=== PATIENT | female | born 1975 | race Caucasian/White ===

== ENCOUNTER 2018-01-29 06:12 | Day surgery (SDC) | payer MEDICAID ==
[~2018-01-29] VITALS: Ht 172.7 cm; Wt 77.6 kg
[~2018-01-29 06:12] MED LIST: AMIT25TA9 PO; ARIP10TA2 PO; AZIT250T PO; BUDE10.22 IH; D-ME118S33 PO; HYDR-1231 PO; HYDR1CAP2 PO; HYDR1TAB PO; LORA10TA7 PO; NAPR-243 PO; NAPR250T34 PO; OMEP40CA36 PO; PARO30TA74 PO; PENI500T; PRD20T PO; TRM50T PO; TRZ100T PO
--- OUTSIDE RECORDS SUMMARY | 2018-01-29 06:16 | XMS REPORT ---
Author Author BELÉN TOVAR Organization [employer] Address Unknown Phone Unavailable Care Team Providers Care Community Chest Officer Name Role Phone BELÉN TOVAR CP Unavailable Allergies No Known Allergies Problems Problem Type Condition Code Onset Dates Condition Status Problem Sleep disturbance G47.9 Active Problem Gastroesophageal reflux disease, esophagitis presence not specified K21.9 Active Problem Elevated liver enzymes R74.8 Active Medications No Known Medications Results No Known Results Summary Purpose [employer] Submission
--- OUTSIDE RECORDS SUMMARY | 2018-01-29 06:16 | XMS REPORT ---
Author Author BELÉN TOVAR Organization [employer] Address Unknown Phone Unavailable Care Team Providers Care Vending Route Servicer Name Role Phone BELÉN TOVAR Unavailable Allergies No Known Allergies Problems Problem Type Condition Code Onset Dates Condition Status Problem Sleep disturbance G47.9 Active Problem Gastroesophageal reflux disease, esophagitis presence not specified K21.9 Active Problem Elevated liver enzymes R74.8 Active Assessment Elevated liver enzymes R74.8 Active Medications No Known Medications Procedures Procedure Coding System Code Date VENIPUNCT, ROUTINE* CPT-4 77720 Mar 30, 2016 LAB NOT BILLED BY [facility] CPT-4 NOBLL Mar 30, 2016 Results Name Result Date Reference Range Unit Abnormality Flag ROUTINE VENIPUNCTURE Summary Purpose [employer] Submission
--- OUTSIDE RECORDS SUMMARY | 2018-01-29 06:16 | XMS REPORT ---
Author Author ADRIENBELÉN CUTLER [facility] Address [address] [place] [address] Care Team Providers Care Bullet Slugs Inspector Name Role Phone BELÉN TOVAR Unavailable PROBLEMS Type Condition ICD9-CM Code VHQ12-SA Code Onset Dates Condition Status SNOMED Code Problem Tobacco abuse counseling Z71.6 Active 833559151 Problem Anxiety associated with depression F41.8 Active 156743540 Problem Psoriatic arthritis L40.50 Active 855386321 Problem Gastroesophageal reflux disease, esophagitis presence not specified K21.9 Active 394216705 Problem Sleep disturbance G47.9 Active 66263780 Problem Tobacco abuse Z72.0 Active 374896602 Problem Polydipsia R63.1 Active 68344759 Problem Microscopic hematuria R31.29 Active 198572978 Problem Depressed mood F32.9 Active 100606822 Problem Elevated liver enzymes R74.8 Active 051277585 Problem Cigarette smoker one half pack a day or less F17.210 Active 42868365 Problem Hypertriglyceridemia E78.1 Active 952306438 ALLERGIES Substance Reaction Event Type Date Status Sulfa Unknown Non Drug Allergy May, Active ENCOUNTERS Encounter Location Date Diagnosis [facility] [address] [facility] [id number][place] [id number] Dec, [facility] [id number][place] [id number] October, Dental examination Z01.20 [facility] [address] [facility] [id number][place] [id number] Jul, [facility] [address] [id number][place] [id number] Jun, GE (gastroenteritis) K52.9 [facility] [address] [place] [address] [id number][place] [id number] May, Microscopic hematuria R31.[address] [facility] [address] [id number][place] [id number] May, Polydipsia R63.1 ; Gastroesophageal reflux disease, esophagitis presence not specified K21.9 ; Cigarette smoker one half pack a day or less F17.210 and Microscopic hematuria R31.29 [facility] [address] [id number] [id number] 19 Feb, 2017 Acute non-recurrent maxillary sinusitis J01.00 and Sinus pressure J34.89 [facility] [id number][place] [id number] Feb, Tinea pedis of left foot B35.3 [facility] [address] [id number][place] [id number] October, Gastroesophageal reflux disease, esophagitis presence not specified K21.9 and Psoriatic arthritis L40.50 [facility] [address] [id number][place] [id number] October, [facility] [address] [id number][place] [id number] Jun, [facility] [address] [id number][place] [id number] Jun, Gastroesophageal reflux disease, esophagitis presence not specified K21.9 and Hypertriglyceridemia E78.1 [facility] [address] [id number][place] [id number] May, Psoriatic arthritis L40.50 [facility] [address] [id number][place] [id number] Apr, [facility] [address] [id number][place] [id number] Apr, Depressed mood F32.9 ; Tobacco abuse Z72.0 ; Tobacco abuse counseling Z71.6 and Psoriatic arthritis L40.[address] [facility] [address] [id number], [place] [address] Apr, [facility] [address] [id number], [place] [id number] Apr, Depressed mood F32.[address] [facility] [address] [id number], [place] [id number] Mar, Elevated liver enzymes R74.[address] [facility] [address] [id number], [place] [id number] Mar, Elevated liver enzymes R74.[address] [facility] [address] [id number], [place] [id number] Mar, Elevated liver enzymes R74.[address] [facility] [address] [id number], [place] [id number] Mar, [facility] [address] [id number], [place] [address] Mar, Sleep disturbance G47.[address] [facility] [address] [id number], [place] [id number] Mar, Sleep disturbance G47.9 and Gastroesophageal reflux disease, esophagitis presence not specified K21.[address] [facility] [address] [id number], [place] [id number] Mar, Anxiety associated with depression F41.[address] [facility] [address] [id number], [place] [id number] Nov, [facility] [place] [facility] [id number] [address] Sep, [facility] [place] [facility] [id number] [place] [address] Sep, [facility] [place] [facility] [id number] [address] Jul, [facility] [place] [facility] [id number] [place] [address] Jul, [facility] [place] [facility] [address]00565100[place] [address] Jul, [facility] [place] [facility] [id number] [place] [id number] Jul, 2014 [facility] [place] [facility] [address] [id number] [place] [address] Jul, 2014 [facility] [place] [facility] [address] [id number] [place] [address] Jul, 2014 [facility] [place] [facility] [address] [id number] [place] [address] Jul, 2014 [facility] [place] [facility] [address] [id number] [place] [address] 1184 Jul, 2014 [facility] [place] [facility] [address] [id number] [place] [address] Jul, 2014 [facility] [place] [facility] [address] [facility] [id number] [place] [address] May, [facility] [place] [facility] [address] [facility] [id number] [place] [address]- 6759 May, [facility] [place] [facility] [address] [id number] [place] [address]- 7144 May, [facility] [place] [facility] [address] [id number] [place] [address]- 7207 May, [facility] [place] [facility] [address] [facility] [id number] [place] [address]107 May, [facility] [place] [facility] [address] [id number] [place] [address]65 May, [facility] [place] [facility] [address] [id number] [place] [address] 2310 Apr, [facility] [place] [facility] [address] [id number] [place] [address]- 5871 Apr, [facility] [place] [facility] [address] [facility] [id number] [place] [address]- 1612 Mar, [facility] [place] [facility] [address] [id number] [place] [address] Mar, [facility] [place] [facility] [address] [id number] [place] [address]- 9204 Mar, [facility] [place] [facility] [address] [id number] [place] [address]- 5191 Mar, [facility] [place] [facility] [address] [id number] [place] [address]- 30[address] Mar, [facility] [place] [facility] [address] [id number] [place] [address]- 3288 Mar, [facility] [place] [facility] [address] [id number] [place] [address]- 0222 Mar, [facility] [place] [facility] [address] [id number] [place] [address] Feb, [facility] [place] [facility] [address] [id number] [place] [address]- 7207 Feb, [facility] [place] [facility] [address] [id number] [place] [address]- 9134 Dec, [facility] [place] [facility] [address] [id number] [place] [address]- 4884 Dec, [facility] [place] [facility] [address] [id number] [place] [address]- 8161 Dec, [facility] [place] [facility] [address] [id number] [place] [address]- 0328 Dec, [facility] [place] [facility] [address] [id number] [place] [address]- 0529 Dec, [facility] [place] [facility] [address] [id number] [place] [address]- 9728 Dec, [facility] [place] [facility] [address] [id number] [place] [address]- 2313 Nov, [facility] [place] [facility] [address] [id number] [place] [address]- [address]304 Nov, [facility] [place] [facility] [address] [id number] [place] [address]- 3784 Nov, [facility] [place] [facility] [address] [id number] [place] [address]- 6977 Nov, [facility] [place] [facility] [address] [id number] [place] [address]- 0045 Nov, [facility] [place] [facility] [address] [id number] [place] [address]- 3130 Nov, [facility] [place] [facility] [address] [id number] [place] [address]- 9025 Nov, [facility] [place] [facility] [address] [id number] [place] [address]- 3444 Nov, [facility] [place] [facility] [address] [id number] [place] [address]- 3671 Nov, [facility] [place] [facility] [address] [id number] [place] [address]- 5938 Nov, [facility] [place] [facility] [address] [id number] [place] [address]- 9105 October, [facility] [place] [facility] [address] [id number] [place] [address]- 2807 October, [facility] [place] [facility] [address] [id number] [place] [address]- 0037 October, [facility] [place] [facility] [address] [id number] [place] [address]- 4155 October, [facility] [place] [facility] [address] [id number] [place] [address]- 2770 October, [facility] [place] [facility] [address] [id number] [place] [address]- 9718 October, [facility] [place] [facility] [address] [id number] [place] [address]- 9449 October, [facility] [place] [facility] [address] [id number] [place] [address]- 7480 October, [facility] [place] [facility] [address] [id number] [place] [address]- 9654 October, [facility] [address] [id number] [place] [address]- 8074 October, [facility] [address] [id number] [place] [address]- 2223 October, [facility] [address] [id number] [place] [address]- 2040 October, [facility] [address] [id number] [place] [address]- 1746 October, [facility] [address] [id number] [place] [address]- 1534 October, [facility] [address] [id number] [place] [address]- 4383 October, [facility] [address] [id number] [place] [address]- 8804 October, [facility] [address] [id number] [place] [address]- 0230 October, [facility] [address] [id number] [place] [address]- 4066 Sep, [facility] [address] [id number] [place] [address]- 9020 Sep, [facility] [address] [id number] [place] [address]- 5190 Jun, [facility] [address] [id number] [place] [address]- 6195 Jun, [facility] [place] [facility] [address] [id number] [place] [address]- 2279 Jun, [facility] [address] [id number] [place] [address]- 0124 Jun, [facility] [address] [id number] [place] [address]- 6150 Jun, [facility] [place] [facility] [address] [id number] [place] [address]- 8913 17 Jun, 2013 [facility] [place] [facility] [address] [id number] [place] [address]- 7957 16 Jun, 2013 [facility] [place] [facility] [address] [id number] [place] [address]- 8437 15 Jun, 2013 [facility] [place] [facility] [address] [id number] [place] [address]- 5380 15 Jun, 2013 [facility] [place] [facility] [address] [id number] [place] [address]- 4699 15 Jun, 2013 [facility] [place] [facility] [address] [id number] [place] [address]- 0175 15 Jun, 2013 [facility] [place] [facility] [address] [id number] [place] [address]- 5082 May, [facility] [place] [facility] [address] [id number] [place] [address]- 2702 May, [facility] [place] [facility] [address] [id number] [place] [address]- 2369 Apr, [facility] [place] [facility] [address] [id number] [place] [address]- 0857 Apr, [facility] [place] [facility] [address] [id number] [place] [address]- 0657 Apr, [facility] [place] [facility] [address] [id number] [address]- 3299 Apr, [facility] [place] [facility] [address] [id number] [place] [address]- 6998 Apr, [facility] [place] [facility] [address] [id number] [place] [address]- 1571 Apr, [facility] [place] [facility] [address] [id number] [place] [address]- 4440 Apr, [facility] [place] [facility] [address] [id number] [place] [address]- 6080 Mar, [facility] [address] [id number] [place] [address]- 5161 Mar, [facility] [place] [facility] [address] [id number] [place] [address]- 5139 Mar, [facility] [address] [id number] [place] [address]- 0966 Mar, [facility] [place] [facility] [address] [id number] [place] [address]- 1155 Mar, [facility] [address] [id number] [place] [address]- 7227 Mar, [facility] [place] [facility] [address] [id number] [place] [address]- 1049 Mar, [facility] [address] [id number] [place] [address]- 5751 Mar, [facility] [place] [facility] [address] [id number] [place] [address]- 7989 Feb, [facility] [place] [facility] [address] [id number] [place] [address]- 8608 Dec, [facility] [place] [facility] [address] [id number] [place] [address]- 9825 Nov, [facility] [place] [facility] [address] [id number] [place] [address]- 5812 Nov, [facility] [place] [facility] [address] [id number] [place] [address]- 1259 October, [facility] [place] [facility] [address] [id number] [place] [address]- 0231 October, [facility] [place] [facility] [address] [id number] [place] [address]- 8782 October, [facility] [place] [facility] [address] [id number] [place] [address]- 5552 October, [facility] [place] [facility] [address] [id number] [place] [address]- 2546 October, [facility] [address] [id number] [place] [address]- 4846 October, [facility] [address] [id number] [place] [address]- 2546 October, [facility] [address] [id number] [place] [address]- 2546 Aug, [facility] [place] [facility] [address] [id number] [place] [address]- 2546 Aug, [facility] [place] [facility] [address] [id number] [place] [address]- 9386 Jul, [facility] [address] [id number] [place] [address]- 2546 Jun, [facility] [address] [id number] [place] [address]- 9646 May, [facility] [address] [id number] [place] [address]- 7513 May, [facility] [address] [facility] [id number] [place] [address]- 9576 Apr, [facility] [address] [facility] [id number] [place] [address]- 8536 Apr, [facility] [address] [facility] [id number] [address]- 2466 Mar, [facility] [address] [facility] [id number] [place] [address]- 2546 Mar, [facility] [address] [id number] [id number] Mar, [facility] [address] [facility] [id number] [place] [address]- 2546 Mar, [facility] [place] [facility] [address] [facility] [id number], [place] [address]- 1011 Feb, [facility] [address] [id number] [place] [id number] Feb, [facility] [address] [id number] [place] [address]- 0581 Jan, [facility] [address] [id number] [place] [address]- 9335 Dec, [facility] [address] [id number] [place] [address]- 3484 October, [facility] [address] [id number] [place] [address]- 0692 Sep, [facility] [address] [id number] [place] [address]- 5142 Sep, [facility] [address] [id number] [place] [address]- 5557 Sep, [facility] [address] [id number] [place] [address]- 3374 Sep, [facility] [address] [id number] [place] [address]- 7691 Sep, [facility] [address] [id number] [place] [address]- 5226 Sep, [facility] [address] [id number] [place] [address]- 5609 Sep, [facility] [address] [id number] [place] [address]- 9162 Aug, [facility] [place] [facility] [address] [id number] [place] [address]- 2741 Aug, [facility] [place] [facility] [address] [id number] [place] [address]- 7048 Aug, [facility] [address] [id number] [place] [address]- 5484 May, [facility] [address] [id number], [place] [address]- 1646 Apr, [facility] [address] [facility] [id number] [place] [address]- 9024 Mar, [facility] [address] [facility] [id number], [place] [address]- 2676 Mar, [facility] [address] [facility] [id number], [place] [address]- 8335 Jun, [facility] [address] [facility] [id number], [place] [address]- 9137 Apr, IMMUNIZATIONS No Known Immunizations SOCIAL HISTORY Never Assessed REASON FOR VISIT gerd bferrisma PLAN OF CARE Activity Details Follow Up 6 Weeks Reason:WW exam VITAL SIGNS Height 66 in 2017-05-16 Weight 174.8 lbs 2017-05-16 Temperature 97.2 degrees Fahrenheit 2017-05-16 Heart Rate 86 bpm 2017-05-16 Respiratory Rate 16 2017-05-16 BMI 28.21 kg/m2 2017-05-16 Blood pressure systolic 118 mmHg 2017-05-16 Blood pressure diastolic 72 mmHg 2017-05-16 MEDICATIONS Medication Instructions Dosage Frequency Start Date End Date Duration Status Meloxicam 7.5 MG Orally twice a day 1 as needed for pain, take with food 12h October, Active Omeprazole 40 mg Orally Once a day 1 capsule 24h Jul, 90 days Active Triamcinolone Acetonide 0.1 % Externally Twice a day-2 weeks on and 2 weeks off 1 application to affected area Active Sudafed 60 mg Orally every 6 hrs 1 tablet as needed 6h Feb, 14 days Not-Taking Nicoderm CQ 21 MG/24HR Transdermal Once a day 1 patch to skin 24h May, Jun, 30 day(s) Active RESULTS No Results PROCEDURES Procedure Date Ordered Result Body Site URINALYSIS, AUTO, W/O SCOPE May 16, 2017 LAB NOT BILLED BY [facility] May 16, 2017 INSTRUCTIONS MEDICATIONS ADMINISTERED No Known Medications MEDICAL (GENERAL) HISTORY Type Description Date Medical History Bipolar Medical History Anxiety Medical History Depression Medical History alcoholism Medical History psoriatic arthritis Medical History psoriasis Medical History trichomonas Medical History hpv Medical History herpes Medical History elevated liver enzymes Medical History hyperlipidemia Medical History EGD ordered-pt no showed Surgical History Tubal 2000 Surgical History Lump left breast removed-noncancerous 2004 Surgical History Sinus Surgery 2008,2013 Surgical History Right foot 2013 Surgical History gallbladder 1999 Hospitalization History above listed
--- OUTSIDE RECORDS SUMMARY | 2018-01-29 06:16 | XMS REPORT ---
Author Author BRIT Castro [facility] Address [address] [place] [address] Care Team Providers Care Churn Operator Name Role Phone BRIT Castro Unavailable PROBLEMS Type Condition ICD9-CM Code EDM74-AU Code Onset Dates Condition Status SNOMED Code Problem Psoriatic arthritis L40.50 Active 400249986 Problem Elevated liver enzymes R74.8 Active 957438681 Problem Anxiety associated with depression F41.8 Active 457269313 Problem Gastroesophageal reflux disease, esophagitis presence not specified K21.9 Active 744739491 Problem Sleep disturbance G47.9 Active 79353945 Problem Tobacco abuse Z72.0 Active 035859676 Problem Tobacco abuse counseling Z71.6 Active 916169030 Problem Plantar wart of right foot B07.0 Active [id number] Problem Polydipsia R63.1 Active 51441399 Problem Hypertriglyceridemia E78.1 Active 619243372 Problem Depressed mood F32.9 Active 247571629 Problem Microscopic hematuria R31.29 Active 115522270 Problem Cigarette smoker one half pack a day or less F17.210 Active 43999331 ALLERGIES Substance Reaction Event Type Date Status Sulfa Unknown Non Drug Allergy October, Active ENCOUNTERS Encounter Location Date Diagnosis [facility] [address] [facility] [id number] [id number] Jan, Plantar wart of right foot B07.0 [facility] [address] [facility] [id number][place] [address] Dec, Plantar wart of right foot B07.0 [facility] [address] [facility] [id number][place] [id number] October, Dental examination Z01.20 [facility] [address] [facility] [id number][place] [address] Jul, [address] [id number][place] [address] Jun, GE (gastroenteritis) K52.9 [facility] [id number][place] [address] May, Microscopic hematuria R31.29 [facility] [id number][place] [address] May, Polydipsia R63.1 ; Gastroesophageal reflux disease, esophagitis presence not specified K21.9 ; Cigarette smoker one half pack a day or less F17.210 and Microscopic hematuria R31.29 [address] [address] Feb, Acute non-recurrent maxillary sinusitis J01.00 and Sinus pressure J34.89 [address] [address] Feb, Tinea pedis of left foot B35.3 [facility] [address] [place] [address] AVE [id number][place] [id number] October, Gastroesophageal reflux disease, esophagitis presence not specified K21.9 and Psoriatic arthritis L40.50 [facility] [address] [place] [address] AVE [id number], [place] [id number] October, [facility] [address] [id number], [place] [address] Jun, [facility] [address] [place] [address] AVE [id number], [place] [address] Jun, Gastroesophageal reflux disease, esophagitis presence not specified K21.9 and Hypertriglyceridemia E78.1 [facility] [address] [id number], [place] [address] May, Psoriatic arthritis L40.50 [facility] [address] [id number][place] [id number] Apr, [facility] [address] [id number], [place] [address] Apr, Depressed mood F32.9 ; Tobacco abuse Z72.0 ; Tobacco abuse counseling Z71.6 and Psoriatic arthritis L40.[address] [facility] [address] [id number][place] [address] Apr, [facility] [address] [id number], [place] [address] Apr, Depressed mood F32.[address] [facility] [address] [id number], [place] [address] Mar, Elevated liver enzymes R74.[address] [facility] [address] [id number], [place] [address] Mar, Elevated liver enzymes R74.[address] [facility] [address] [id number], [place] [address] Mar, Elevated liver enzymes R74.8 [facility] [address] [id number], [place] [address] Mar, [facility] [address] [id number], [place] [address] Mar, Sleep disturbance G47.9 [facility] [address] [id number], [place] [address] Mar, Sleep disturbance G47.9 and Gastroesophageal reflux disease, esophagitis presence not specified K21.[address] [facility] [address] [id number], [place] [address] Mar, Anxiety associated with depression F41.[address] [facility] [address] [id number], [place] [address] Nov, [facility] [place] [facility] [address] [id number], [place] [address] Sep, [facility] [place] [facility] [address]00565100[place], [place] [address] Sep, [facility] [place] [facility] [address] [id number], [place] [address] Jul, [facility] [address]00565100[place], [place] [address] 13 Jul, 2014 [facility] [place] [facility] [address] [id number] [place] [address] Jul, 2014 [facility] [place] [facility] [address] [facility] [id number] [place] [address] 12 Jul, 2014 [facility] [place] [facility] [address] [facility] [id number] [place] [address] 9966 Jul, 2014 [facility] [place] [facility] [address] [facility] [id number] [place] [address] 8036 Jul, 2014 [facility] [place] [facility] [address] [facility] [id number] [place] [address] 2398 Jul, 2014 [facility] [place] [facility] [address] [facility] [id number] [place] [address]- 5356 05 Jul, 2014 [facility] [place] [facility] [address] [id number] [address] 05 Jul, 2014 [facility] [place] [facility] [address] [facility] [id number] [place] [address]- 9827 May, [facility] [place] [facility] [address] [facility] [id number] [place] [address] 3218 May, [facility] [place] [facility] [address] [facility] [id number] [place] [address] 7962 May, [facility] [place] [facility] [address] [facility] [id number] [place] [address] 2546 May, [facility] [place] [facility] [address] [facility] [id number] [place] [address]- 2544 May, [facility] [place] [facility] [address] [facility] [id number] [place] [address] May, [facility] [place] [facility] [address] [facility] [id number] [place] [address]- 4716 Apr, [facility] [place] [facility] [address] [facility] [id number] [place] [address]- 7611 Apr, [facility] [place] [facility] [address] [id number] [place] [address]- 1149 Mar, [facility] [place] [facility] [address] [id number] [place] [address]- 6379 Mar, [facility] [place] [facility] [address] [id number] [place] [address]- 2596 Mar, [facility] [place] [facility] [address] [id number] [place] [address]- 4526 Mar, [facility] [place] [facility] [address] [id number] [place] [address]- 9312 Mar, [facility] [place] [facility] [address] [id number] [place] [address]- 2636 Mar, [facility] [place] [facility] [address] [id number] [place] [address]- 1262 Mar, [facility] [place] [facility] [address] [id number] [place] [address]- 9353 Feb, [facility] [place] [facility] [address] [id number] [place] [address]- 6370 Feb, [facility] [place] [facility] [address] [id number] [place] [address]- 6606 Dec, [facility] [place] [facility] [address] [id number] [place] [address]- 1785 Dec, [facility] [place] [facility] [address] [id number], [place] [address] Dec, [facility] [place] [facility] [address] [id number] [place] [address]- 7785 Dec, [facility] [place] [facility] [address] [id number] [place] [address]- 1306 Dec, [facility] [place] [facility] [address] [id number] [place] [address]- 7690 Dec, [facility] [place] [facility] [address] [id number] [place] [address]- 8055 Nov, [facility] [place] [facility] [address] [id number] [place] [address]- 3447 Nov, [facility] [place] [facility] [address] [id number] [place] [address]- 3874 Nov, [facility] [place] [facility] [address] [id number] [place] [address]- 4302 Nov, [facility] [place] [facility] [address] [id number] [place] [address]- 1337 Nov, [facility] [place] [facility] [address] [id number] [place] [address]- 5568 Nov, [facility] [place] [facility] [address] [id number] [place] [address]- 4023 Nov, [facility] [place] [facility] [address] [id number] [place] [address]- 4908 Nov, [facility] [place] [facility] [address] [id number] [place] [address]- 4866 Nov, [facility] [place] [facility] [address] [id number] [place] [address]- 2792 Nov, [facility] [place] [facility] [address] [id number] [place] [address]- 3410 October, [facility] [place] [facility] [address] [id number] [place] [address]- 8482 October, [facility] [place] [facility] [address] [id number] [place] [address]- 2864 October, [facility] [place] [facility] [address] [id number] [place] [address]- 5644 October, [facility] [place] [facility] [address] [id number] [place] [address]- 2330 October, [facility] [place] [facility] [address] [id number] [place] [address]- 4083 October, [facility] [place] [facility] [address] [id number] [place] [address]- 5967 October, [facility] [address] [id number] [place] [address]- 6109 October, [facility] [place] [facility] [address] [id number] [place] [address] October, [facility] [place] [facility] [address] [id number] [place] [address]- 3712 October, [facility] [place] [facility] [address] [id number] [place] [address]- 5649 October, [facility] [place] [facility] [address] [id number] [place] [address]- 7422 October, [facility] [place] [facility] [address] [id number] [place] [address]- 7023 October, [facility] [place] [facility] [address] [id number] [place] [address]- 7471 October, [facility] [place] [facility] [address] [id number] [place] [address]- 7511 October, [facility] [place] [facility] [address] [id number] [place] [address]- 3024 October, [facility] [place] [facility] [address] [id number] [place] [address]- 8647 October, [facility] [place] [facility] [address] [id number] [place] [address]- 8663 Sep, [facility] [place] [facility] [address] [id number] [place] [address]- 6866 Sep, [facility] [place] [facility] [address] [id number] [place] [address]- 6599 Jun, [facility] [place] [facility] [address] [id number] [place] [address]- 6446 Jun, [facility] [place] [facility] [address] [id number] [place] [address]- 4650 Jun, [facility] [place] [facility] [address] [id number] [place] [address]- 6177 Jun, [facility] [place] [facility] [address] [id number] [place] [address]- 1264 20 Jun, 2013 [facility] [place] [facility] [address] [id number] [place] [address]- 6365 17 Jun, 2013 [facility] [place] [facility] [address] [id number] [place] [address]- 2602 16 Jun, 2013 [facility] [place] [facility] [address] [id number] [place] [address]- 0226 15 Jun, 2013 [facility] [place] [facility] [address] [id number] [place] [address]- 4428 15 Jun, 2013 [facility] [place] [facility] [address] [id number] [place] [address]- 2988 15 Jun, 2013 [facility] [place] [facility] [address] [id number] [place] [address]- 5981 15 Jun, 2013 [facility] [place] [facility] [address] [id number] [place] [address]- 5923 May, [facility] [place] [facility] [address] [id number] [place] [address]- 0339 May, [facility] [place] [facility] [address] [id number], [place] [address]- 6313 Apr, [facility] [place] [facility] [address] [id number], [place] [address]- 8196 19 Apr, 2013 [facility] [place] [facility] [address] [id number] [place] [address]- 5843 15 Apr, 2013 [facility] [place] [facility] [address] [id number], [place] [address]- 9238 11 Apr, 2013 [facility] [place] [facility] [address] [id number] [place] [address]- 8185 11 Apr, 2013 [facility] [place] [facility] [address] [id number] [place] [address] 2545 Apr, [facility] [address] [id number] [place] [address]- 5606 Apr, [facility] [place] [facility] [address] [id number] [place] [address]- 5049 Mar, [facility] [place] [facility] [address] [id number] [place] [address]- 4932 Mar, [facility] [place] [facility] [address] [id number] [place] [address]- 2340 Mar, [facility] [place] [facility] [address] [id number] [place] [address]- 5047 Mar, [facility] [place] [facility] [address] [id number] [place] [address]- 0865 Mar, [facility] [place] [facility] [address] [id number] [place] [address]- 9318 Mar, [facility] [place] [facility] [address] [id number] [place] [address]- 6511 Mar, [facility] [place] [facility] [address] [id number] [place] [address]- 0337 Mar, [facility] [place] [facility] [address] [id number] [place] [address]- 9817 Feb, [facility] [place] [facility] [address] [id number] [place] [address]- 6461 Dec, [facility] [place] [facility] [address] [id number] [place] [address] 2549 Nov, [facility] [place] [facility] [address] [id number] [place] [address]- 3771 Nov, [facility] [place] [facility] [address] [id number] [place] [address]- 8642 October, [facility] [place] [facility] [address] [id number] [place] [address]- 0290 October, [facility] [place] [facility] [address] [id number] [place] [address]- 5226 October, [facility] [address] [id number] [place] [address]- 3226 October, [facility] [address] [id number] [place] [address]- 2546 October, [facility] [address] [id number] [place] [address]- 5176 October, [facility] [address] [id number] [place] [address]- 2546 October, [facility] [address] [id number] [place] [address]- 3116 Aug, [facility] [address] [facility] [id number] [place] [address]- 2546 Aug, [facility] [address] [id number] [place] [address]- 8486 Jul, [facility] [address] [id number] [place] [address]- 4286 Jun, [facility] [address] [facility] [id number] [place] [address]- 2806 May, [facility] [address] [facility] [id number] [place] [address]- 2186 May, [facility] [address] [id number] [place] [address]- 2546 Apr, [facility] [address] [facility] [id number] [place] [address]- 2546 Apr, [facility] [address] [facility] [id number] [place] [address]- 2546 Mar, [facility] [address] [facility] [id number] [place] [address]- 2546 Mar, [facility] [address] [id number] [address] Mar, [facility] [address] [id number] [place] [address]- 5326 Mar, [facility] [address] [id number] [place] [address]- 3396 Feb, [facility] [address] [id number][place] [address] Feb, [facility] [place] [facility] [address] [id number] [place] [address] 2546 Jan, [facility] [place] [facility] [address] [id number] [place] [address]- 8081 Dec, [facility] [place] [facility] [address] [id number] [place] [address]- 8246 October, [facility] [place] [facility] [address] [id number] [place] [address]- 5481 Sep, [facility] [place] [facility] [address] [id number] [place] [address]- 2735 Sep, [facility] [place] [facility] [address] [id number] [place] [address]- 9761 Sep, [facility] [place] [facility] [address] [id number] [place] [address]34 Sep, [facility] [place] [facility] [address] [id number] [place] [address]- 6201 Sep, [facility] [place] [facility] [address] [id number], [place] [address]- 5647 Sep, [facility] [place] [facility] [address] [id number] [place] [address]- 7740 Sep, [facility] [place] [facility] [address] [id number] [place] [address]- 3906 Aug, [facility] [place] [facility] [address] [id number] [place] [address]- 4116 Aug, [facility] [place] [facility] [address] [id number], [place] [address]- 7987 Aug, [facility] [address] [id number] [address]99 May, [facility] [address] [id number], [place] [address]- 1516 Apr, [facility] [address] [id number], [place] [address]- 6293 Mar, [facility] [address] [id number], [place] [address]- 6081 Mar, [facility] [address] [id number] 3216 Jun, [facility] [address] [id number] 5828 Apr, IMMUNIZATIONS No Known Immunizations SOCIAL HISTORY Never Assessed REASON FOR VISIT broke tooth PLAN OF CARE Activity Details Follow Up 1 Week Reason:1 hour restorative VITAL SIGNS Height 66 in 2017-10-24 Blood pressure systolic 114 mmHg 2017-10-24 Blood pressure diastolic 72 mmHg 2017-10-24 MEDICATIONS Medication Instructions Dosage Frequency Start Date End Date Duration Status Omeprazole 40 mg Orally Once a day 1 capsule 24h Jul, 90 days Active Nicoderm CQ 14 MG/24HR Transdermal Once a day 1 patch to skin 24h Not-Taking Meloxicam 7.5 MG Orally twice a day 1 as needed for pain, take with food 12h 30 Oct, 2016 Active Triamcinolone Acetonide 0.1 % Externally Twice a day-2 weeks on and 2 weeks off 1 application to affected area Not-Taking Sudafed 60 mg Orally every 6 hrs 1 tablet as needed 6h 19 Feb, 2017 14 days Not-Taking RESULTS No Results PROCEDURES Procedure Date Ordered Result Body Site LTD ORAL EVALUATION - PROBLEM FOCUS October 24, 2017 INTRAORL-PERIAPICAL 1 FILM 09812 October 24, 2017 BITEWING - SINGLE FILM October 24, 2017 INSTRUCTIONS MEDICATIONS ADMINISTERED No Known Medications MEDICAL (GENERAL) HISTORY Type Description Date Medical History Bipolar Medical History Anxiety Medical History Depression Medical History alcoholism Medical History psoriatic arthritis Medical History psoriasis Medical History trichomonas Medical History hpv Medical History herpes Medical History elevated liver enzymes Medical History hyperlipidemia Medical History EGD ordered-pt no showed Surgical History Tubal 1999 Surgical History Lump left breast removed-noncancerous 2004 Surgical History Sinus Surgery 2008,2013 Surgical History Right foot 2013 Surgical History gallbladder 1999 Hospitalization History above listed
--- OUTSIDE RECORDS SUMMARY | 2018-01-29 06:16 | XMS REPORT ---
Author Author DJEON RUBIO [facility] eClinical[employer] Address Unknown Phone Unavailable Care Team Providers Care Stamp Presser Name Role Phone DEJON RUBIO CP Unavailable Allergies No Known Allergies Problems Problem Type Condition Code Onset Dates Condition Status Problem Elevated liver enzymes R74.8 Active Problem Sleep disturbance G47.9 Active Problem Depressed mood F32.9 Active Problem Gastroesophageal reflux disease, esophagitis presence not specified K21.9 Active Assessment Depressed mood F32.9 Active Medications No Known Medications Procedures Procedure Coding System Code Date Psychotherapy, patient &/family, 45 minutes, established patient CPT-4 73454 Apr 07, 2016 Results No Known Results Summary Purpose eClinicalWorks Submission
--- OUTSIDE RECORDS SUMMARY | 2018-01-29 06:16 | XMS REPORT ---
Author Author BELÉN TOVAR Organization [facility] Address [address] [place] [address] Care Team Providers Care Chief Mechanical Officer Name Role Phone BELÉN TOVAR Unavailable PROBLEMS Type Condition ICD9-CM Code [id number] Code Onset Dates Condition Status SNOMED Code Problem Gastroesophageal reflux disease, esophagitis presence not specified K21.9 Active 714484980 Problem Tobacco abuse Z72.0 Active 710788065 Problem Sleep disturbance G47.9 Active 59395188 Problem Hypertriglyceridemia E78.1 Active 403985917 Problem Depressed mood F32.9 Active 179721076 Problem Psoriatic arthritis L40.50 Active 031281267 Problem Tobacco abuse counseling Z71.6 Active 153701182 Problem Elevated liver enzymes R74.8 Active 178990785 Problem Anxiety associated with depression F41.8 Active 811049831 ALLERGIES Substance Reaction Event Type Date Status Sulfa Unknown Non Drug Allergy Jun, Active SOCIAL HISTORY No smoking Hx information available PLAN OF CARE Activity Details Follow Up 3 Months Reason:GERD VITAL SIGNS Height 66 in 2016-06-08 Weight 190.9 lbs 2016-06-08 Temperature 97.4 degrees Fahrenheit 2016-06-08 Heart Rate 82 bpm 2016-06-08 Respiratory Rate 18 2016-06-08 BMI 30.81 kg/m2 2016-06-08 Blood pressure systolic 106 mmHg 2016-06-08 Blood pressure diastolic 62 mmHg 2016-06-08 MEDICATIONS Medication Instructions Dosage Frequency Start Date End Date Duration Status Omeprazole 40 mg Orally Once a day 1 capsule 24h Jul, 90 days Active Triamcinolone Acetonide 0.1 % Externally Twice a day apply a thin layer to the affected area(s) by Topical route 2 times per day on for 2 weeks, off x 2 weeks 12h Jul, 14 days Active RESULTS No Results PROCEDURES Procedure Date Ordered Related Diagnosis Body Site Office Visit, Est Pt., Level 3 Jun 08, 2016 IMMUNIZATIONS No Known Immunizations
--- OUTSIDE RECORDS SUMMARY | 2018-01-29 06:16 | XMS REPORT ---
Author Author DEJON RUBIO Organization [facility] Address Unknown Phone Unavailable Care Team Providers Care Field Crop Farmer Name Role Phone DEJON RUBIO Unavailable Unavailable PROBLEMS Type Condition ICD9-CM Code [id number]-NW Code Onset Dates Condition Status SNOMED Code Problem Gastroesophageal reflux disease, esophagitis presence not specified K21.9 Active 256637735 Problem Tobacco abuse Z72.0 Active 541471104 Problem Sleep disturbance G47.9 Active 31287630 Problem Hypertriglyceridemia E78.1 Active 850699578 Problem Depressed mood F32.9 Active 685868688 Problem Psoriatic arthritis L40.50 Active 040687957 Problem Tobacco abuse counseling Z71.6 Active 415695304 Problem Elevated liver enzymes R74.8 Active 159414766 Problem Anxiety associated with depression F41.8 Active 623212284 ALLERGIES No Known Allergies SOCIAL HISTORY No smoking Hx information available PLAN OF CARE VITAL SIGNS MEDICATIONS No Known Medications RESULTS No Results PROCEDURES No Known procedures IMMUNIZATIONS No Known Immunizations
--- OUTSIDE RECORDS SUMMARY | 2018-01-29 06:17 | XMS REPORT ---
Author Author [facility]Y [facility] Address [address] [place] [address] Care Team Providers Care Straw Baler Name Role Phone BELÉN TOVAR Unavailable PROBLEMS Type Condition ICD9-CM Code [id number] Code Onset Dates Condition Status SNOMED Code Problem Gastroesophageal reflux disease, esophagitis presence not specified K21.9 Active 139394323 Problem Tobacco abuse Z72.0 Active 044041715 Problem Sleep disturbance G47.9 Active 14370230 Problem Hypertriglyceridemia E78.1 Active 131703032 Problem Depressed mood F32.9 Active 314508948 Problem Psoriatic arthritis L40.50 Active 579312550 Problem Tobacco abuse counseling Z71.6 Active 823527732 Problem Elevated liver enzymes R74.8 Active 838963573 Problem Anxiety associated with depression F41.8 Active 284354845 ALLERGIES Substance Reaction Event Type Date Status Sulfa Unknown Non Drug Allergy October, Active SOCIAL HISTORY Never Assessed PLAN OF CARE Activity Details Follow Up 6 Months Reason:gerd Future/Pending Procedure EGD VITAL SIGNS Height 66 in 2016-10-31 Weight 178.4 lbs 2016-10-31 Temperature 97.3 degrees Fahrenheit 2016-10-31 Heart Rate 80 bpm 2016-10-31 Respiratory Rate 18 2016-10-31 BMI 28.79 kg/m2 2016-10-31 Blood pressure systolic 130 mmHg 2016-10-31 Blood pressure diastolic 64 mmHg 2016-10-31 MEDICATIONS Medication Instructions Dosage Frequency Start Date End Date Duration Status Triamcinolone Acetonide 0.1 % Externally Twice a day apply a thin layer to the affected area(s) by Topical route 2 times per day on for 2 weeks, off x 2 weeks 12h 12 Jul, 2014 14 days Active Omeprazole 40 mg Orally Once a day 1 capsule 24h Jul, 90 days Active Meloxicam 7.5 MG Orally twice a day 1 as needed for pain, take with food 12h October, Active RESULTS No Results PROCEDURES No Known procedures IMMUNIZATIONS No Known Immunizations MEDICAL (GENERAL) HISTORY Type Description Date Medical History Bipolar Medical History Anxiety Medical History Depression Medical History alcoholism Medical History psoriatic arthritis Medical History psoriasis Medical History trichomonas Medical History hpv Medical History herpes Medical History elevated liver enzymes Medical History hyperlipidemia Surgical History Tubal 2000 Surgical History Lump left breast removed 2004 Surgical History Sinus Surgery 2008,2013 Surgical History Right foot 2013 Surgical History gallbladder 2000
--- OUTSIDE RECORDS SUMMARY | 2018-01-29 06:17 | XMS REPORT ---
Author Author MAUDE UGEVARA [facility] Address [address] [place] [address] Care Team Providers Care Field Account Manager Name Role Phone MAUDE GUEVARA Unavailable PROBLEMS Type Condition ICD9-CM Code XUJ77-LV Code Onset Dates Condition Status SNOMED Code Problem Tobacco abuse counseling Z71.6 Active 404705202 Problem Anxiety associated with depression F41.8 Active 776054078 Problem Psoriatic arthritis L40.50 Active 356502369 Problem Gastroesophageal reflux disease, esophagitis presence not specified K21.9 Active 934748916 Problem Sleep disturbance G47.9 Active 05627386 Problem Tobacco abuse Z72.0 Active 672080379 Problem Polydipsia R63.1 Active 00889246 Problem Microscopic hematuria R31.29 Active 141792325 Problem Depressed mood F32.9 Active 997972418 Problem Elevated liver enzymes R74.8 Active 493034338 Problem Cigarette smoker one half pack a day or less F17.210 Active 98750462 Problem Hypertriglyceridemia E78.1 Active 774807320 ALLERGIES Substance Reaction Event Type Date Status Sulfa Unknown Non Drug Allergy Feb, Active ENCOUNTERS Encounter Location Date Diagnosis [address] [id number] [id number] Jul, [address] [id number][place] [address] Jun, GE (gastroenteritis) K52.[address] [id number][place] [address] May, Microscopic hematuria R31.[address] [id number][place] [id number] May, Polydipsia R63.1 ; Gastroesophageal reflux disease, esophagitis presence not specified K21.9 ; Cigarette smoker one half pack a day or less F17.210 and Microscopic hematuria R31.29 [facility] [address] [facility] [id number][place] [address] Feb, Acute non-recurrent maxillary sinusitis J01.00 and Sinus pressure J34.89 [facility] [address] [facility] [id number][place] [id number] 08 Feb, 2017 Tinea pedis of left foot B35.[address] [facility] [address] [id number][place] [address] October, Gastroesophageal reflux disease, esophagitis presence not specified K21.9 and Psoriatic arthritis L40.50 [facility] [address] [id number][place] [address] October, [facility] [address] [id number][place] [address] Jun, [facility] [address] [id number][place] [address] Jun, Gastroesophageal reflux disease, esophagitis presence not specified K21.9 and Hypertriglyceridemia E78.[address] [facility] [address] [id number][place] [address] May, Psoriatic arthritis L40.[address] [facility] [address] [id number][place] [address] Apr, [facility] [address] [id number][place] [address] Apr, Depressed mood F32.9 ; Tobacco abuse Z72.0 ; Tobacco abuse counseling Z71.6 and Psoriatic arthritis L40.[address] [facility] [address] [id number][place] [address] Apr, [facility] [address] [id number][place] [address] Apr, Depressed mood F32.[address] [facility] [address] [id number][place] [address] Mar, Elevated liver enzymes R74.[address] [facility] [address] [id number][place] [address] Mar, Elevated liver enzymes R74.8 [facility] [address] [id number][place] [address] Mar, Elevated liver enzymes R74.8 [facility] [address] [id number][place] [address] Mar, [facility] [address] [id number], [place] [address] Mar, Sleep disturbance G47.9 [facility] [address] [id number][place] [address] Mar, Sleep disturbance G47.9 and Gastroesophageal reflux disease, esophagitis presence not specified K21.9 [facility] [address] [id number][place] [address] Mar, Anxiety associated with depression F41.8 [facility] [address] [id number][place] [address] Nov, [facility] [place] [facility] [id number] [address] Sep, [facility] [place] [facility] [id number] [place] [address] Sep, [facility] [place] [facility] [id number] [address] Jul, [facility] [place] [facility] [id number] [place] [address] Jul, [facility] [place] [facility] [address] [address] Jul, [facility] [place] [facility] [id number] [place] [address] Jul, [facility] [place] [facility] [address] [address] Jul, [facility] [place] [facility] [id number] [place] [address] Jul, 2014 [facility] [place] [facility] [address] [id number] [place] [address] Jul, 2014 [facility] [place] [facility] [address] [id number] [place] [address] Jul, 2014 [facility] [place] [facility] [address] [id number] [place] [address] Jul, 2014 [facility] [place] [facility] [address] [id number] [place] [address] 8926 May, [facility] [place] [facility] [address] [id number] [place] [address] 7567 May, [facility] [place] [facility] [address] [id number] [place] [address] 140[address] May, [facility] [place] [facility] [address] [id number] [place] [address] 8818 May, [facility] [place] [facility] [address] [id number] [place] [address] 8728 May, [facility] [place] [facility] [address] [id number] [place] [address]70 May, [facility] [place] [facility] [address] [id number] [place] [address] Apr, [facility] [place] [facility] [address] [id number] [place] [address] 65[address] Apr, [facility] [place] [facility] [address] [id number] [place] [address] 133[address] Mar, [facility] [place] [facility] [address] [id number] [place] [address] 6040 Mar, [facility] [place] [facility] [address] [id number] [place] [address] 6[address] Mar, [facility] [place] [facility] [address] [facility] [id number] [place] [address] Mar, [facility] [place] [facility] [address] [id number] [place] [address] 2416 Mar, [facility] [place] [facility] [address] [id number] [place] [address] 46[address] Mar, [facility] [place] [facility] [address] [id number] [place] [address] 3216 Mar, [facility] [place] [facility] [address] [id number] [place] [address] 117[address] Feb, [facility] [place] [facility] [address] [id number] [place] [address] 267[address] Feb, [facility] [place] [facility] [address] [id number] [place] [address] 0[address] Dec, [facility] [place] [facility] [address] [id number] [place] [address] 3614 Dec, [facility] [place] [facility] [address] [id number] [place] [address] 3161 Dec, [facility] [place] [facility] [address] [id number] [place] [address] 6058 Dec, [facility] [place] [facility] [address] [id number] [place] [address] 6480 Dec, [facility] [place] [facility] [address] [id number] [place] [address]- 6746 Dec, [facility] [place] [facility] [address] [id number] [place] [address] 7623 Nov, [facility] [place] [facility] [address] [id number] [place] [address] 3616 Nov, [facility] [place] [facility] [address] [id number] [place] [address]- 1021 Nov, [facility] [place] [facility] [address] [id number] [place] [address] 9606 Nov, [facility] [place] [facility] [address] [id number] [place] [address] Nov, [facility] [place] [facility] [address] [id number] [place] [address]- [address]44 Nov, [facility] [place] [facility] [address] [id number] [place] [address]- 6691 Nov, [facility] [place] [facility] [address] [id number] [place] [address]- 4414 Nov, [facility] [place] [facility] [address] [id number] [place] [address]- 1635 Nov, [facility] [place] [facility] [address] [id number] [place] [address] Nov, [facility] [place] [facility] [address] [id number] [place] [address]- 5128 October, [facility] [place] [facility] [address] [id number] [place] [address]- 7841 October, [facility] [place] [facility] [address] [id number] [place] [address]- 4124 October, [facility] [place] [facility] [address] [id number] [place] [address]- 4908 October, [facility] [place] [facility] [address] [id number] [place] [address]- 7934 October, [facility] [place] [facility] [address] [id number] [place] [address]- 1752 October, [facility] [place] [facility] [address] [id number] [place] [address]- 8835 October, [facility] [place] [facility] [address] [id number] [place] [address]- 6406 October, [facility] [place] [facility] [address] [id number] [place] [address]- 8126 October, [facility] [place] [facility] [address] [id number] [place] [address]- 7875 October, [facility] [place] [facility] [address] [id number] [place] [address]- 0085 October, [facility] [address] [id number] [place] [address]- 2690 October, [facility] [place] [facility] [address] [id number] [place] [address]- 4094 October, [facility] [place] [facility] [address] [id number] [place] [address]- 8984 October, [facility] [place] [facility] [address] [id number] [place] [address]- 9380 October, [facility] [place] [facility] [address] [id number] [place] [address]- 5419 October, [facility] [place] [facility] [address] [id number] [place] [address]- 8400 October, [facility] [address] [id number] [place] [address]- 5772 Sep, [facility] [place] [facility] [address] [id number] [place] [address]- 8705 Sep, [facility] [place] [facility] [address] [id number] [place] [address]- 1035 Jun, [facility] [place] [facility] [address] [id number] [place] [address]- 7101 Jun, [facility] [place] [facility] [address] [id number] [place] [address]- 4196 Jun, [facility] [place] [facility] [address] [id number] [place] [address]- 8037 Jun, [facility] [place] [facility] [address] [id number] [place] [address]- 1060 Jun, [facility] [place] [facility] [address] [id number] [place] [address]- 7948 Jun, [facility] [place] [facility] [address] [id number] [place] [address]- 8817 Jun, [facility] [place] [facility] [address] [id number] [place] [address]- 0324 15 Jun, 2013 [facility] [place] [facility] [address] [id number] [place] [address]- 5517 15 Jun, 2013 [facility] [place] [facility] [address] [id number] [place] [address]- 4904 15 Jun, 2013 [facility] [place] [facility] [address] [id number] [place] [address]- 4102 15 Jun, 2013 [facility] [place] [facility] [address] [id number] [place] [address]- 9315 May, [facility] [place] [facility] [address] [id number] [place] [address]- 5928 May, [facility] [place] [facility] [address] [id number] [place] [address]- 6207 Apr, [facility] [place] [facility] [address] [id number] [place] [address]- 0551 Apr, [facility] [place] [facility] [address] [id number] [place] [address]- 6161 Apr, [facility] [place] [facility] [address] [id number] [place] [address]- 9566 Apr, [facility] [place] [facility] [address] [id number] [place] [address]- 9159 Apr, [facility] [place] [facility] [address] [id number] [place] [address]- 2147 Apr, [facility] [place] [facility] [address] [id number] [place] [address]- 9868 Apr, [facility] [place] [facility] [address] [id number] [place] [address]- 9543 Mar, [facility] [place] [facility] [address] [id number] [place] [address]- 3986 Mar, [facility] [place] [facility] [address] [id number] [place] [address]- 0184 Mar, [facility] [address] [id number] [place] [address]- 0845 Mar, [facility] [place] [facility] [address] [id number] [place] [address]- 9435 Mar, [facility] [place] [facility] [address] [id number] [place] [address]- 2990 Mar, [facility] [place] [facility] [address] [id number] [place] [address]- 2310 Mar, [facility] [address] [id number] [place] [address]- 1510 Mar, [facility] [place] [facility] [address] [id number] [place] [address]- 9483 Feb, [facility] [place] [facility] [address] [id number] [place] [address]- 9265 Dec, [facility] [place] [facility] [address] [id number] [place] [address]- 5546 Nov, [facility] [place] [facility] [address] [id number] [place] [address]- 0567 Nov, [facility] [place] [facility] [address] [id number] [place] [address]- 8634 October, [facility] [place] [facility] [address] [id number] [place] [address]- 7304 October, [facility] [place] [facility] [address] [id number] [place] [address]- 2324 October, [facility] [place] [facility] [address] [id number] [place] [address]- 6084 October, [facility] [place] [facility] [address] [id number] [place] [address]- [address] October, [facility] [place] [facility] [address] [id number] [place] [address]- 7693 October, [facility] [place] [facility] [address] [id number] [place] [address] 2546 October, [facility] [address] [id number] [place] [address]- 2333 Aug, [facility] [place] [facility] [address] [id number] [place] [address] 2546 Aug, [facility] [address] [id number] [place] [address]- 2406 Jul, [facility] [place] [facility] [address] [id number] [place] [address]- 2542 Jun, [facility] [address] [id number] [place] [address]- 6964 May, [facility] [place] [facility] [address] [facility] [id number] [place] [address]- 1842 May, [facility] [id number] [place] [address]- 1281 Apr, [facility] [address] [facility] [id number] [place] [address]- 9730 Apr, [facility] [place] [facility] [address] [id number] [address]- 5066 Mar, [facility] [address] [facility] [id number] [place] [address] 2546 Mar, [facility] [address] [id number] [id number] Mar, [facility] [place] [facility] [address] [facility] [id number] [place] [address]- 2546 Mar, [facility] [place] [facility] [address] [facility] [id number] [place] [address]- 2546 Feb, [facility] [address] [facility] [id number][place] [address] Feb, [facility] [place] [facility] [address] [id number] [address]- 2546 Jan, [facility] [place] [facility] [address] [facility] [id number] [place] [address]- 0792 Dec, [facility] [address] [id number] [place] [address]- 0687 October, [facility] [address] [id number] [place] [address]- 1494 Sep, [facility] [address] [id number] [place] [address]- 5064 Sep, [facility] [address] [id number] [place] [address]- 3179 Sep, [facility] [address] [id number] [place] [address]- 2166 Sep, [facility] [address] [id number] [place] [address]- 6401 Sep, [facility] [address] [id number] [place] [address]- 1656 Sep, [facility] [address] [id number] [place] [address]- 4807 Sep, [facility] [address] [id number] [place] [address]- 2029 Aug, [facility] [address] [id number] [place] [address]- 2709 Aug, [facility] [address] [id number] [place] [address]- 3205 Aug, [facility] [address] [id number] [place] [address]- 9746 May, [facility] [place] [facility] [address] [id number] [place] [address]- 3886 05 Apr, 2010 [facility] [place] [facility] [address] [id number] [place] [address]- 8235 Mar, [facility] [address] [id number] [place] [address]- 0543 Mar, [facility] [address] [facility] [id number] [place] [address] Jun, [facility] [address] [facility] [id number] [place] [address]- 2552 Apr, IMMUNIZATIONS No Known Immunizations SOCIAL HISTORY Never Assessed REASON FOR VISIT Pt c/o rash and itchy left foot x's 3-4 months ago Ivone WEEKS PLAN OF CARE Activity Details Follow Up prn Reason: VITAL SIGNS Height 66 in 2017-02-09 Weight 174 lbs 2017-02-09 Temperature 98.3 degrees Fahrenheit 2017-02-09 Heart Rate 92 bpm 2017-02-09 Respiratory Rate 16 2017-02-09 BMI 28.08 kg/m2 2017-02-09 Blood pressure systolic 124 mmHg 2017-02-09 Blood pressure diastolic 76 mmHg 2017-02-09 MEDICATIONS Medication Instructions Dosage Frequency Start Date End Date Duration Status Econazole Nitrate 1 % Externally Once a day 1 application to affected area 24h Feb, Feb, 14 day(s) Active Meloxicam 7.5 MG Orally twice a day 1 as needed for pain, take with food 12h 30 Oct, 2016 Active Omeprazole 40 mg Orally Once a day 1 capsule 24h 12 Jul, 2014 90 days Active RESULTS No Results PROCEDURES No Known procedures INSTRUCTIONS MEDICATIONS ADMINISTERED No Known Medications MEDICAL (GENERAL) HISTORY Type Description Date Medical History Bipolar Medical History Anxiety Medical History Depression Medical History alcoholism Medical History psoriatic arthritis Medical History psoriasis Medical History trichomonas Medical History hpv Medical History herpes Medical History elevated liver enzymes Medical History hyperlipidemia Medical History EGD ordered-pt no showed Surgical History Tubal 1999 Surgical History Lump left breast removed 2004 Surgical History Sinus Surgery 2008,2013 Surgical History Right foot 2013 Surgical History gallbladder 2000
--- OUTSIDE RECORDS SUMMARY | 2018-01-29 06:17 | XMS REPORT ---
Author Author DEJON RUBIO Organization [employer] Address Unknown Phone Unavailable Care Team Providers Care Beam Department Supervisor Name Role Phone DEJON RUBIO Unavailable Allergies No Known Allergies Problems Problem Type Condition Code Onset Dates Condition Status Problem Psoriatic arthritis L40.50 Active Problem Tobacco abuse Z72.0 Active Problem Anxiety associated with depression F41.8 Active Problem Gastroesophageal reflux disease, esophagitis presence not specified K21.9 Active Assessment Anxiety associated with depression F41.8 Active Problem Tobacco abuse counseling Z71.6 Active Problem Sleep disturbance G47.9 Active Medications No Known Medications Results No Known Results Summary Purpose [employer] Submission
--- OUTSIDE RECORDS SUMMARY | 2018-01-29 06:17 | XMS REPORT ---
Author Author BELÉN TOVAR Organization [employer] Address Unknown Phone Unavailable Care Team Providers Care Bread Icer Name Role Phone BELÉN TOVAR CP Unavailable [...]
--- OUTSIDE RECORDS SUMMARY | 2018-01-29 06:17 | XMS REPORT ---
Author Author ADRIENYARON CUTLERSON [facility] Address [address] [place] [address] Care Team Providers Care Senior Sales Representative Name Role Phone BELÉN TOVAR Unavailable PROBLEMS Type Condition ICD9-CM Code MHE14-MU Code Onset Dates Condition Status SNOMED Code Problem Tobacco abuse counseling Z71.6 Active 377371165 Problem Anxiety associated with depression F41.8 Active 468953967 Problem Psoriatic arthritis L40.50 Active 494258343 Problem Gastroesophageal reflux disease, esophagitis presence not specified K21.9 Active 602311967 Problem Sleep disturbance G47.9 Active 54973984 Problem Tobacco abuse Z72.0 Active 184189099 Problem Polydipsia R63.1 Active 43056362 Problem Microscopic hematuria R31.29 Active 288426955 Problem Depressed mood F32.9 Active 490084322 Problem Elevated liver enzymes R74.8 Active 215029489 Problem Cigarette smoker one half pack a day or less F17.210 Active 44297039 Problem Hypertriglyceridemia E78.1 Active 353300930 ALLERGIES No Information ENCOUNTERS Encounter Location Date Diagnosis [facility] [address] [facility] [id number] [id number] Dec, [facility] [address] [facility] [facility] [address] [id number] [place] [id number] October, Dental examination Z01.20 [facility] [address] [facility] [id number] [place] [id number] Jul, [facility] [address] [id number] [id number] Jun, GE (gastroenteritis) K52.9 [facility] [address] [facility] [id number] [place] [id number] May, Microscopic hematuria R31.29 [facility] [address] [facility] [id number] [place] [id number] May, Polydipsia R63.1 ; Gastroesophageal reflux disease, esophagitis presence not specified K21.9 ; Cigarette smoker one half pack a day or less F17.210 and Microscopic hematuria R31.29 [facility] [id number] [id number] 19 Feb, 2017 Acute non-recurrent maxillary sinusitis J01.00 and Sinus pressure J34.89 [facility] [id number] [place] [id number] 08 Feb, 2017 Tinea pedis of left foot B35.3 [facility] [id number] [place] [id number] October, Gastroesophageal reflux disease, esophagitis presence not specified K21.9 and Psoriatic arthritis L40.50 [facility] [address] [id number] [place] [id number] October, [facility] [address] [id number] [place] [id number] Jun, [facility] [address] [id number] [place] [address] Jun, Gastroesophageal reflux disease, esophagitis presence not specified K21.9 and Hypertriglyceridemia E78.1 [facility] [address] [id number] [place] [id number] May, Psoriatic arthritis L40.50 [facility] [address] [id number] [place] [address] Apr, [facility] [address] [id number] [place] [address] Apr, Depressed mood F32.9 ; Tobacco abuse Z72.0 ; Tobacco abuse counseling Z71.6 and Psoriatic arthritis L40.50 [facility] [address] [id number] [place] [id number] Apr, [facility] [address] [id number] [place] [address] Apr, Depressed mood F32.[address] [facility] [address] [id number] [place] [id number] Mar, Elevated liver enzymes R74.[address] [facility] [address] [id number] [place] [id number] Mar, Elevated liver enzymes R74.8 [facility] [address] [id number] [place] [id number] Mar, Elevated liver enzymes R74.[address] [facility] [address] [id number] [place] [id number] Mar, [facility] [address] [id number] [place] [id number] Mar, Sleep disturbance G47.[address] [facility] [address] [id number] [place] [id number] Mar, Sleep disturbance G47.9 and Gastroesophageal reflux disease, esophagitis presence not specified K21.[address] [facility] [address] [address] [id number] [place] [id number] Mar, Anxiety associated with depression F41.[address] [facility] [address] [id number] [place] [id number] Nov, [facility] [address]00565100[place], [place] [address] Sep, [facility] [address]00565100[place], [place] [address] Sep, [facility] [place] [facility] [address]00565100[place], [place] [address] Jul, [facility] [place] [facility] [id number] [place] [address] Jul, [facility] [place] [facility] [address]00565100[place], [place] [address] Jul, [facility] [id number] [place] [address] Jul, [facility] [place] [facility] [address] [id number] [place] [address] Jul, 2014 [facility] [place] [facility] [address] [id number] [place] [address] Jul, 2014 [facility] [place] [facility] [address] [id number] [place] [address] Jul, 2014 [facility] [place] [facility] [address] [id number] [place] [address] 46[address] Jul, 2014 [facility] [place] [facility] [address] [id number] [place] [address] 38[address] Jul, 2014 [facility] [place] [facility] [address] [id number] [place] [address]- [address] May, [facility] [place] [facility] [address] [id number] [place] [address]- 1622 May, [facility] [place] [facility] [address] [id number] [place] [address] May, [facility] [place] [facility] [address] [id number] [place] [address]- 4[address] May, [facility] [place] [facility] [address] [id number] [place] [address] 2491 May, [facility] [place] [facility] [address] [id number] [place] [address]- [address] May, [facility] [place] [facility] [address] [id number], [place] [address] Apr, [facility] [place] [facility] [address] [id number] [place] [address] 36[address] Apr, [facility] [place] [facility] [address] [id number] [place] [address]- 6[address] Mar, [facility] [place] [facility] [address] [id number] [place] [address]- [address] Mar, [facility] [place] [facility] [address] [id number] [place] [address]- 8933 Mar, [facility] [place] [facility] [address] [id number] [place] [address]- 69[address] Mar, [facility] [place] [facility] [address] [id number] [place] [address]- 9653 Mar, [facility] [place] [facility] [address] [id number] [place] [address]- [address] Mar, [facility] [place] [facility] [address] [id number] [place] [address]- 6259 Mar, [facility] [place] [facility] [address] [id number] [place] [address]- 7969 Feb, [facility] [place] [facility] [address] [id number] [place] [address] Feb, [facility] [place] [facility] [address] [id number] [place] [address]- 67[address] Dec, [facility] [place] [facility] [address] [id number] [place] [address]- 2044 Dec, [facility] [place] [facility] [address] [id number] [place] [address]- 2072 Dec, [facility] [place] [facility] [address] [id number] [place] [address]- 3240 Dec, [facility] [place] [facility] [address] [id number] [place] [address]- 6333 Dec, [facility] [place] [facility] [address] [id number] [place] [address]- 0096 Dec, [facility] [place] [facility] [address] [id number] [place] [address]- 4450 Nov, [facility] [place] [facility] [address] [id number] [place] [address]- 6311 Nov, [facility] [place] [facility] [address] [id number] [place] [address]- [address]56 Nov, [facility] [place] [facility] [address] [id number] [place] [address]- 9196 Nov, [facility] [place] [facility] [address] [id number] [place] [address]- 7232 Nov, [facility] [place] [facility] [address] [id number] [place] [address]- [address]478 Nov, [facility] [place] [facility] [address] [id number] [place] [address]- [address]109 Nov, [facility] [place] [facility] [address] [id number] [place] [address]- 4194 Nov, [facility] [place] [facility] [address] [id number] [place] [address]- 6[address] Nov, [facility] [place] [facility] [address] [id number] [place] [address]- 9875 Nov, [facility] [place] [facility] [address] [id number] [place] [address]- 2594 October, [facility] [place] [facility] [address] [id number] [place] [address]- [address]78 October, [facility] [place] [facility] [address] [id number] [place] [address]- 8401 October, [facility] [place] [facility] [address] [id number] [place] [address]- 6541 October, [facility] [place] [facility] [address] [id number] [place] [address]- 6924 October, [facility] [place] [facility] [address] [id number] [place] [address]- 4664 October, [facility] [place] [facility] [address] [id number] [place] [address]- 4762 October, [facility] [place] [facility] [address] [id number] [place] [address]- 8235 October, [facility] [place] [facility] [address] [id number] [place] [address]- 6234 October, [facility] [place] [facility] [address] [id number] [place] [address]- 4649 October, [facility] [place] [facility] [address] [id number] [place] [address]- 0965 October, [facility] [place] [facility] [address] [id number] [place] [address]- 3208 October, [facility] [place] [facility] [address] [id number] [place] [address]- 7078 October, [facility] [place] [facility] [address] [id number] [place] [address]- 5145 October, [facility] [place] [facility] [address] [id number] [place] [address]- 6507 October, [facility] [place] [facility] [address] [id number] [place] [address]- 7242 October, [facility] [place] [facility] [address] [id number] [place] [address]- 4803 October, [facility] [place] [facility] [address] [id number] [place] [address]- 0078 Sep, [facility] [place] [facility] [address] [id number] [place] [address]- 2177 Sep, [facility] [place] [facility] [address] [id number] [place] [address]- 8865 Jun, [facility] [place] [facility] [address] [id number] [place] [address]- 3352 Jun, [facility] [place] [facility] [address] [id number] [place] [address]- 4482 Jun, [facility] [place] [facility] [address] [id number] [place] [address]- 9517 Jun, [facility] [place] [facility] [address] [id number] [place] [address]- 7593 Jun, [facility] [place] [facility] [address] [id number] [place] [address]- 3773 17 Jun, 2013 [facility] [address] [id number] [place] [address]- 8632 16 Jun, 2013 [facility] [address] [id number] [place] [address]- 2752 15 Jun, 2013 [facility] [address] [id number] [place] [address]- 9248 15 Jun, 2013 [facility] [address] [id number] [place] [address]- 0291 15 Jun, 2013 [facility] [address] [id number] [place] [address]- 7907 15 Jun, 2013 [facility] [address] [id number] [place] [address]- 6077 11 May, 2013 [facility] [address] [id number] [place] [address]- 1598 May, [facility] [address] [id number] [place] [address]- 8187 Apr, [facility] [address] [id number] [place] [address]- 7891 Apr, [facility] [address] [id number] [place] [address]- 4858 15 Apr, 2013 [facility] [address] [id number] [place] [address]- 8276 Apr, [facility] [address] [id number] [place] [address]- 0523 Apr, [facility] [place] [facility] [address] [id number] [place] [address]- 5052 Apr, [facility] [place] [facility] [address] [id number] [place] [address]- 4904 Apr, [facility] [place] [facility] [address] [id number] [place] [address]- 2635 Mar, [facility] [place] [facility] [address] [id number] [place] [address]- 7928 Mar, [facility] [place] [facility] [address] [id number] [place] [address]- 2421 Mar, [facility] [place] [facility] [address] [id number] [place] [address]- 0543 Mar, [facility] [place] [facility] [address] [id number] [place] [address]- 6891 Mar, [facility] [address] [id number] [place] [address]- 3157 Mar, [facility] [place] [facility] [address] [id number] [place] [address]- 7518 Mar, [facility] [place] [facility] [address] [id number] [place] [address]- 6436 Mar, [facility] [place] [facility] [address] [id number] [place] [address]- 1881 Feb, [facility] [place] [facility] [address] [id number] [place] [address]- 9942 Dec, [facility] [place] [facility] [address] [id number] [place] [address]- 5090 Nov, [facility] [place] [facility] [address] [id number] [place] [address] 2546 Nov, [facility] [place] [facility] [address] [id number], [place] [address]- 1442 October, [facility] [place] [facility] [address] [id number] [place] [address]- 8813 October, [facility] [place] [facility] [address] [id number] [place] [address]- 6016 October, [facility] [place] [facility] [address] [id number] [place] [address] 2546 October, [facility] [place] [facility] [address] [id number], [place] [address]- 1496 October, [facility] [address] [id number] [place] [address]- 4816 October, [facility] [place] [facility] [address] [facility] [id number], [place] [address]- 6066 October, [facility] [place] [facility] [address] [facility] [id number] [place] [address]- 9146 Aug, [facility] [place] [facility] [address] [id number] [place] [address] 2546 Aug, [facility] [place] [facility] [address] [facility] [id number] [place] [address]- 9836 Jul, [facility] [place] [facility] [address] [facility] [id number] [place] [address]- 6406 Jun, [facility] [address] [facility] [id number], [place] [address]- 6316 May, [facility] [place] [facility] [address] [facility] [id number] [place] [address]- 9437 May, [facility] [address] [facility] [id number], [place] [address]- 3463 Apr, [facility] [address] [facility] [id number], [place] [address]- 3106 Apr, [facility] [place] [facility] [address] [facility] [id number], [place] [address]- 7616 Mar, [facility] [place] [facility] [address] [facility] [id number], [place] [address]- 2546 Mar, [facility] [address] [facility] [id number] [id number] Mar, [facility] [place] [facility] [address] [facility] [id number], [place] [address]- 2546 Mar, [facility] [place] [facility] [address] [facility] [id number], [place] [address]- 2546 Feb, [facility] [address] [id number] [place] [id number] 07 Feb, 2012 [facility] [address] [id number] [place] [address]- 8135 Jan, [facility] [address] [facility] [id number] [place] [address]- 3984 Dec, [facility] [address] [id number] [place] [address]- 8891 October, [facility] [address] [id number] [place] [address]- 7206 Sep, [facility] [address] [id number] [place] [address]- 3625 Sep, [facility] [place] [facility] [address] [id number] [place] [address]- 0196 Sep, [facility] [address] [place] [address]- 2251 Sep, [facility] [place] [facility] [address] [id number] [place] [address]- 1660 Sep, [facility] [address] [id number] [place] [address]- 8133 Sep, [facility] [place] [facility] [address] [id number] [place] [address]- 4933 Sep, [facility] [address]65100[facility] [place] [address]- 4401 Aug, [facility] [place] [facility] [address] [facility] [id number] [place] [address]- 7192 Aug, [facility] [place] [facility] [address] [facility] [id number] [place] [address]- 9902 Aug, [facility] [place] [facility] [address] [facility] [id number] [place] [address]- 0517 May, [facility] [place] [facility] [address] [id number] [place] [address]- 2176 Apr, [facility] [place] [facility] [address] [facility] [id number] [place] [address]- 9998 Mar, [facility] [address] [facility] [id number], [place] [address]- 5209 Mar, [facility] [address] [facility] [id number], [place] [address]- 1822 Jun, [facility] [address] [facility] [id number], [place] [address]- 4441 Apr, IMMUNIZATIONS No Known Immunizations SOCIAL HISTORY Never Assessed REASON FOR VISIT Lab results PLAN OF CARE VITAL SIGNS MEDICATIONS Unknown Medications RESULTS No Results PROCEDURES No Known procedures INSTRUCTIONS MEDICATIONS ADMINISTERED No Known Medications MEDICAL (GENERAL) HISTORY Type Description Date Medical History Bipolar Medical History Anxiety Medical History Depression Medical History alcoholism Medical History psoriatic arthritis Medical History psoriasis Medical History trichomonas Medical History hpv Medical History herpes Medical History elevated liver enzymes Medical History hyperlipidemia Medical History -2016 EGD ordered-pt no showed Surgical History Tubal 1999 Surgical History Lump left breast removed-noncancerous 2004 Surgical History Sinus Surgery 2008,2013 Surgical History Right foot 2013 Surgical History gallbladder 1999 Hospitalization History above listed
--- OUTSIDE RECORDS SUMMARY | 2018-01-29 06:18 | XMS REPORT ---
Author Author MAUDE GUEVARA [facility] Address [address] [place] [address] Care Team Providers Care Regional Retail Sales Manager Name Role Phone MAUDE GUEVARA Unavailable PROBLEMS Type Condition ICD9-CM Code SNJ42-LW Code Onset Dates Condition Status SNOMED Code Problem Tobacco abuse counseling Z71.6 Active 607671854 Problem Anxiety associated with depression F41.8 Active 333387236 Problem Psoriatic arthritis L40.50 Active 832672193 Problem Gastroesophageal reflux disease, esophagitis presence not specified K21.9 Active 444403818 Problem Sleep disturbance G47.9 Active 31092119 Problem Tobacco abuse Z72.0 Active 828034209 Problem Polydipsia R63.1 Active 83084161 Problem Microscopic hematuria R31.29 Active 223380214 Problem Depressed mood F32.9 Active 119435697 Problem Elevated liver enzymes R74.8 Active 484526737 Problem Cigarette smoker one half pack a day or less F17.210 Active 83089665 Problem Hypertriglyceridemia E78.1 Active 367950733 ALLERGIES Substance Reaction Event Type Date Status Sulfa Unknown Non Drug Allergy Jun, Active ENCOUNTERS Encounter Location Date Diagnosis [facility] [address] [facility] [address] [id number] [id number] Dec, [email or web address] [id number][place] [id number] October, Dental examination Z01.20 [place] [address] [facility] [id number][place] [id number] Jul, [facility] [address] [facility] [id number][place] [id number] Jun, GE (gastroenteritis) K52.[address] [id number][place] [id number] May, Microscopic hematuria R31.[address] [facility] [address] [id number], [place] [id number] May, Polydipsia R63.1 ; Gastroesophageal reflux disease, esophagitis presence not specified K21.9 ; Cigarette smoker one half pack a day or less F17.210 and Microscopic hematuria R31.29 [facility] [id number], [place] [id number] Feb, Acute non-recurrent maxillary sinusitis J01.00 and Sinus pressure J34.89 [facility] [id number], [place] [id number] 08 Feb, 2017 Tinea pedis of left foot B35.3 [facility] [address] [id number][place] [id number] October, Gastroesophageal reflux disease, esophagitis presence not specified K21.9 and Psoriatic arthritis L40.50 [facility] [address] [id number][place] [id number] October, [facility] [address] [id number][place] [id number] Jun, [facility] [address] [id number][place] [id number] Jun, Gastroesophageal reflux disease, esophagitis presence not specified K21.9 and Hypertriglyceridemia E78.1 [facility] [address] [id number][place] [id number] May, Psoriatic arthritis L40.50 [facility] [address] [id number], [place] [id number] Apr, [facility] [address] [id number][place] [id number] Apr, Depressed mood F32.9 ; Tobacco abuse Z72.0 ; Tobacco abuse counseling Z71.6 and Psoriatic arthritis L40.50 [facility] [address] [id number][place] [id number] Apr, [facility] [address] [id number][place] [id number] Apr, Depressed mood F32.[address] [facility] [address] [id number], [place] [id number] Mar, Elevated liver enzymes R74.[address] [facility] [address] [id number][place] [id number] Mar, Elevated liver enzymes R74.8 [facility] [address] [id number], [place] [id number] Mar, Elevated liver enzymes R74.8 [facility] [address] [id number], [place] [id number] Mar, [facility] [address] [id number][place] [id number] Mar, Sleep disturbance G47.9 [facility] [address] [id number], [place] [id number] Mar, Sleep disturbance G47.9 and Gastroesophageal reflux disease, esophagitis presence not specified K21.9 [facility] [address] [id number][place] [id number] Mar, Anxiety associated with depression F41.8 [facility] [address] [id number][place] [id number] Nov, [facility] [id number] [address] Sep, [facility] [place] [facility] [address]00565100[place] [address] Sep, [facility] [place] [facility] [address]00565100[place] [address] Jul, [facility] [place] [facility] [id number] [place] [address] Jul, [facility] [place] [facility] [address]00565100[place] [address] Jul, [facility] [place] [facility] [id number] [place] [address] Jul, 2014 [facility] [place] [facility] [address] [id number] [place] [address] Jul, 2014 [facility] [place] [facility] [address] [id number] [place] [address] Jul, 2014 [facility] [place] [facility] [address] [facility] [id number] [place] [address] Jul, 2014 [facility] [place] [facility] [address] [facility] [id number] [place] [address] Jul, 2014 [facility] [place] [facility] [address] [facility] [id number] [place] [address] Jul, 2014 [facility] [place] [facility] [address] [facility] [id number] [place] [address]127 May, [facility] [place] [facility] [address] [facility] [id number] [place] [address] 37[address] May, [facility] [place] [facility] [address] [facility] [id number] [place] [address]35 May, [facility] [place] [facility] [address] [facility] [id number] [place] [address] 1399 May, [facility] [place] [facility] [address] [facility] [id number] [place] [address] 4[address] May, [facility] [place] [facility] [address] [facility] [id number] [place] [address]- [address]48 May, [facility] [place] [facility] [address] [facility] [id number] [place] [address] Apr, [facility] [place] [facility] [address] [facility] [id number] [place] [address]- 0528 Apr, [facility] [place] [facility] [address] [facility] [id number] [place] [address]- 6310 Mar, [facility] [place] [facility] [address] [facility] [id number] [place] [address]- 9479 Mar, [facility] [place] [facility] [address] [id number] [place] [address]- 7075 Mar, [facility] [place] [facility] [address] [id number] [place] [address] 6180 Mar, [facility] [place] [facility] [address] [id number] [place] [address]- 2546 Mar, [facility] [place] [facility] [address] [id number] [place] [address]- 3908 Mar, [facility] [place] [facility] [address] [id number] [place] [address]- 8960 Mar, [facility] [place] [facility] [address] [id number] [place] [address]- 2489 Feb, [facility] [place] [facility] [address] [id number] [place] [address]- 4480 Feb, [facility] [place] [facility] [address] [id number] [place] [address]- 7350 Dec, [facility] [place] [facility] [address] [id number] [place] [address]- 44[address] Dec, [facility] [place] [facility] [address] [id number] [place] [address]- 4126 Dec, [facility] [place] [facility] [address] [id number] [place] [address]- 3177 Dec, [facility] [place] [facility] [address] [id number] [place] [address]- 4780 Dec, [facility] [place] [facility] [address] [id number] [place] [address]- 7084 Dec, [facility] [place] [facility] [address] [id number] [place] [address]- 0979 Nov, [facility] [place] [facility] [address] [id number] [place] [address]- 2546 Nov, [facility] [place] [facility] [address] [id number] [place] [address]- 2179 Nov, [facility] [place] [facility] [address] [id number] [place] [address]- 3034 Nov, [facility] [place] [facility] [address] [id number] [place] [address]- 7694 Nov, [facility] [place] [facility] [address] [id number] [place] [address]- 0893 Nov, [facility] [place] [facility] [address] [id number] [place] [address]- 7756 Nov, [facility] [place] [facility] [address] [id number] [place] [address]- 3969 Nov, [facility] [place] [facility] [address] [id number] [place] [address]- 9459 Nov, [facility] [place] [facility] [address] [id number] [place] [address]- 5117 Nov, [facility] [place] [facility] [address] [id number] [place] [address]- 2779 October, [facility] [place] [facility] [address] [id number] [place] [address]- 8519 October, [facility] [place] [facility] [address] [id number] [place] [address]- 2314 October, [facility] [place] [facility] [address] [id number] [place] [address]- 7639 October, [facility] [place] [facility] [address] [id number] [place] [address]- 0636 October, [facility] [place] [facility] [address] [id number] [place] [address]- 3042 October, [facility] [place] [facility] [address] [id number] [place] [address]- 1102 October, [facility] [place] [facility] [address] [id number] [place] [address]- 8184 October, [facility] [place] [facility] [address] [id number] [place] [address]- 2886 October, [facility] [address] [id number] [place] [address]- 4347 October, [facility] [place] [facility] [address] [id number] [place] [address]- 9856 October, [facility] [address] [id number] [place] [address]- 4394 October, [facility] [place] [facility] [address] [id number] [place] [address]- 3751 October, [facility] [place] [facility] [address] [id number] [place] [address]- 6263 October, [facility] [place] [facility] [address] [id number] [place] [address]- 5360 October, [facility] [address] [id number] [place] [address]- 1448 October, [facility] [place] [facility] [address] [id number] [place] [address]- 4787 October, [facility] [place] [facility] [address] [id number] [place] [address]- 3335 Sep, [facility] [place] [facility] [address] [id number] [place] [address]- 7776 Sep, [facility] [place] [facility] [address] [id number] [place] [address]- 2735 Jun, [facility] [place] [facility] [address] [id number] [place] [address]- 6716 Jun, [facility] [place] [facility] [address] [id number] [place] [address]- 4303 Jun, [facility] [place] [facility] [address] [id number] [place] [address]- 5925 Jun, [facility] [place] [facility] [address] [id number] [place] [address]- 4211 Jun, [facility] [place] [facility] [address] [id number] [place] [address]- 8389 17 Jun, 2013 [facility] [address] [id number] [place] [address]- 7028 16 Jun, 2013 [facility] [place] [facility] [address] [id number] [place] [address]- 8044 15 Jun, 2013 [facility] [place] [facility] [address] [id number] [place] [address]- 2026 Jun, [facility] [address] [id number] [place] [address]- 0738 15 Jun, 2013 [facility] [address] [id number] [place] [address]- 9632 Jun, [facility] [address] [id number] [place] [address]- 7411 May, [facility] [address] [id number] [place] [address]- 9614 May, [facility] [address] [id number] [place] [address]- 0993 Apr, [facility] [address] [id number] [place] [address]- 1077 Apr, [facility] [place] [facility] [address] [id number] [place] [address]- 2470 Apr, [facility] [place] [facility] [address] [id number] [place] [address]- 2314 Apr, [facility] [place] [facility] [address] [id number] [place] [address]- 4177 Apr, [facility] [place] [facility] [address] [id number] [place] [address]- 6683 Apr, [facility] [place] [facility] [address] [id number] [place] [address]- 9035 Apr, [facility] [place] [facility] [address] [id number] [place] [address]- 2546 Mar, [facility] [place] [facility] [address] [id number] [place] [address]- 8264 Mar, [facility] [place] [facility] [address] [id number] [place] [address]- 9510 Mar, [facility] [place] [facility] [address] [id number] [place] [address]- 9773 Mar, [facility] [place] [facility] [address] [id number] [place] [address]- 6398 Mar, [facility] [place] [facility] [address] [id number] [place] [address]- 9700 Mar, [facility] [place] [facility] [address] [id number] [place] [address]- 5603 Mar, [facility] [place] [facility] [address] [id number] [place] [address]- 4030 Mar, [facility] [place] [facility] [address] [id number] [place] [address]- 1107 Feb, [facility] [place] [facility] [address] [id number] [place] [address]- 0720 Dec, [facility] [place] [facility] [address] [id number] [place] [address]- 1979 Nov, [facility] [place] [facility] [address] [id number] [place] [address]- 5180 Nov, [facility] [place] [facility] [address] [id number] [place] [address]- 0932 October, [facility] [place] [facility] [address] [id number] [place] [address]- 4961 October, [facility] [place] [facility] [address] [id number] [place] [address]- 8311 October, [facility] [place] [facility] [address] [id number] [place] [address]- 5573 October, [facility] [place] [facility] [address] [id number] [place] [address]- 2546 October, [facility] [address] [id number] [place] [address]- 7156 October, [facility] [place] [facility] [address] [id number] [place] [address]- 2546 October, [facility] [address] [id number] [place] [address]- 9336 Aug, [facility] [place] [facility] [address] [id number] [place] [address]- 2546 Aug, [facility] [address] [id number] [place] [address]- 0666 Jul, [facility] [address] [id number] [place] [address]- 2546 Jun, [facility] [address] [id number] [place] [address]- 4026 May, [facility] [address] [id number] [place] [address]- 7028 May, [facility] [address] [id number] [place] [address]- 9556 Apr, [facility] [address] [id number] [place] [address]- 8856 Apr, [facility] [address] [id number] [place] [address]- 2546 Mar, [facility] [address] [id number] [place] [address]- 2546 Mar, [facility] [address] [id number], [place] [id number] Mar, [facility] [address] [facility] [id number] [place] [address]- 2546 Mar, [facility] [address] [id number] [address]- 2546 Feb, [facility] [address] [id number] [place] [id number] Feb, [facility] [address] [id number] [place] [address]- 5409 Jan, [facility] [place] [facility] [address] [id number] [place] [address]- 1795 Dec, [facility] [address] [id number] [place] [address]- 7125 October, [facility] [address] [id number] [place] [address]- 2397 Sep, [facility] [place] [facility] [address] [id number] [place] [address]- 4297 Sep, [facility] [address] [id number] [place] [address]- 2804 Sep, [facility] [place] [facility] [address] [id number] [place] [address]- 1622 Sep, [facility] [address] [id number] [place] [address]- 5442 Sep, [facility] [address] [id number] [place] [address]- 9161 Sep, [facility] [address] [id number] [place] [address]- 8377 Sep, [facility] [place] [facility] [address] [id number] [place] [address]- 0477 Aug, [facility] [place] [facility] [address] [id number] [place] [address]- 3822 Aug, [facility] [place] [facility] [address] [id number] [place] [address]- 0401 Aug, [facility] [place] [facility] [address] [id number] [place] [address]- 5558 May, [facility] [place] [facility] [address] [id number] [place] [address]- 4640 Apr, [facility] [address] [facility] [id number] [place] [address] 3452 Mar, [facility] [address] [facility] [id number] [place] [address]- 6816 Mar, [facility] [address] [facility] [id number] [place] [address]- 0441 Jun, [facility] [address] [facility] [id number] [place] [address]- 6333 Apr, IMMUNIZATIONS No Known Immunizations SOCIAL HISTORY Never Assessed REASON FOR VISIT Pt c/o N/V/D started sunday Ivone WEEKS PLAN OF CARE Activity Details Follow Up prn Reason: VITAL SIGNS Height 66 in 2017-06-07 Weight 175.4 lbs 2017-06-07 Temperature 97.7 degrees Fahrenheit 2017-06-07 Heart Rate 84 bpm 2017-06-07 Respiratory Rate 16 2017-06-07 BMI 28.31 kg/m2 2017-06-07 Blood pressure systolic 138 mmHg 2017-06-07 Blood pressure diastolic 78 mmHg 2017-06-07 MEDICATIONS Medication Instructions Dosage Frequency Start Date End Date Duration Status Triamcinolone Acetonide 0.1 % Externally Twice a day-2 weeks on and 2 weeks off 1 application to affected area Active Meloxicam 7.5 MG Orally twice a day 1 as needed for pain, take with food 12h 30 Oct, 2016 Active Omeprazole 40 mg Orally Once a day 1 capsule 24h Jul, 90 days Active Sudafed 60 mg Orally every 6 hrs 1 tablet as needed 6h 19 Feb, 2017 14 days Not-Taking Nicoderm CQ 21 MG/24HR Transdermal Once a day 1 patch to skin 24h 13 May, 2017 Jun, 30 day(s) Active RESULTS No Results PROCEDURES No Known [...]
--- OUTSIDE RECORDS SUMMARY | 2018-01-29 06:18 | XMS REPORT ---
Author Author DEJON RUBIO [facility] Address Unknown Phone Unavailable Care Team Providers Care Manager Of Compensation Name Role Phone DEJON RUBIO Unavailable Unavailable PROBLEMS Type Condition ICD9-CM Code XNC18-IS Code Onset Dates Condition Status SNOMED Code Problem Tobacco abuse counseling Z71.6 Active 464352355 Problem Anxiety associated with depression F41.8 Active 348300961 Problem Psoriatic arthritis L40.50 Active 366450965 Problem Gastroesophageal reflux disease, esophagitis presence not specified K21.9 Active 068924557 Problem Sleep disturbance G47.9 Active 48194813 Problem Tobacco abuse Z72.0 Active 039288755 Problem Polydipsia R63.1 Active 84568479 Problem Microscopic hematuria R31.29 Active 987238303 Problem Depressed mood F32.9 Active 553036308 Problem Elevated liver enzymes R74.8 Active 572697010 Problem Cigarette smoker one half pack a day or less F17.210 Active 50579383 Problem Hypertriglyceridemia E78.1 Active 216775459 ALLERGIES No Information ENCOUNTERS Encounter Location Date Diagnosis [facility] [id number] [place] [address] [id number] Jul, [id number] [place] [address] [id number] Jun, GE (gastroenteritis) K52.[address] [id number][place] [id number] 15 May, 2017 Microscopic hematuria R31.29 [facility] [id number] [place] [address] [id number] May, Polydipsia R63.1 ; Gastroesophageal reflux disease, esophagitis presence not specified K21.9 ; Cigarette smoker one half pack a day or less F17.210 and Microscopic hematuria R31.[id number] [place] [address] [id number] Feb, Acute non-recurrent maxillary sinusitis J01.00 and Sinus pressure J34.89 [facility] [address] [id number] [place] [id number] Feb, Tinea pedis of left foot B35.[address] [facility] [address] [address] [id number][place] [id number] October, Gastroesophageal reflux disease, esophagitis presence not specified K21.9 and Psoriatic arthritis L40.[address] [facility] [address] [address] [id number], [place] [id number] October, [facility] [address] [id number][place] [id number] Jun, [facility] [address] [id number], [place] [id number] Jun, Gastroesophageal reflux disease, esophagitis presence not specified K21.9 and Hypertriglyceridemia E78.[address] [facility] [address] [address] [id number], [place] [id number] May, Psoriatic arthritis L40.[address] [facility] [address] [address] [id number], [place] [id number] Apr, [facility] [address] [id number][place] [id number] Apr, Depressed mood F32.9 ; Tobacco abuse Z72.0 ; Tobacco abuse counseling Z71.6 and Psoriatic arthritis L40.[address] [facility] [address] [address] [id number], [place] [id number] Apr, [facility] [address] [id number][place] [id number] Apr, Depressed mood F32.9 [facility] [address] [id number], [place] [id number] Mar, Elevated liver enzymes R74.[address] [facility] [address] [address] [id number], [place] [id number] Mar, Elevated liver enzymes R74.8 [facility] [address] [id number], [place] [id number] Mar, Elevated liver enzymes R74.8 [facility] [address] [id number], [place] [id number] Mar, [facility] [address] [id number], [place] [id number] Mar, Sleep disturbance G47.9 [facility] [address] [id number][place] [id number] Mar, Sleep disturbance G47.9 and Gastroesophageal reflux disease, esophagitis presence not specified K21.9 [facility] [address] [id number], [place] [id number] Mar, Anxiety associated with depression F41.8 [facility] [id number], [place] [id number] Nov, [facility] [id number] [place] [address] Sep, [facility] [place] [facility] [address] [place] [address]86- 9239 Sep, [facility] [place] [facility] [id number] [place] [address]- [address]122 Jul, [facility] [place] [facility] [address] [address] Jul, [facility] [place] [facility] [id number] [place] [address]394- 5815 Jul, [facility] [place] [facility] [address] [place] [address] 63495- 8373 Jul, [facility] [place] [facility] [id number] [place] [address] 81717- 1316 Jul, [facility] [place] [facility] [address] [address] 1789 Jul, [facility] [id number] [place] [address]2837- 1813 Jul, [facility] [place] [facility] [address] [id number] [place] [address]- 7486 Jul, 2014 [facility] [place] [facility] [address] [id number] [place] [address]- 5870 Jul, [facility] [place] [facility] [address] [id number] [place] [address]- 1469 May, [facility] [place] [facility] [address] [id number] [place] [address]- 8470 May, [facility] [place] [facility] [address] [id number] [place] [address] May, [facility] [place] [facility] [address] [id number] [place] [address]- 1056 May, [facility] [place] [facility] [address] [id number] [place] [address]- 5040 May, [facility] [place] [facility] [address] [id number] [place] [address]- 0927 May, [facility] [place] [facility] [address] [id number] [place] [address]- 3563 Apr, [facility] [place] [facility] [address] [id number] [place] [address]- 2512 Apr, [facility] [place] [facility] [address] [id number] [address] 34[address] Mar, [facility] [place] [facility] [address] [id number] [address] 8728 Mar, [facility] [place] [facility] [address] [id number] [place] [address]- 4678 Mar, [facility] [place] [facility] [address] [id number] [place] [address]- 0418 Mar, [facility] [place] [facility] [address] [facility] [id number] [place] [address]- 3791 Mar, [facility] [place] [facility] [address] [id number] [place] [address]- 0150 07 Mar, 2014 [facility] [place] [facility] [address] [id number] [place] [address]- 5656 Mar, [facility] [place] [facility] [address] [id number] [place] [address]- 4316 30 Feb, 2014 [facility] [place] [facility] [address] [id number] [place] [address]- 6920 30 Feb, 2014 [facility] [place] [facility] [address] [id number] [place] [address]- 7919 Dec, [facility] [place] [facility] [address] [id number] [place] [address]- 2317 Dec, [facility] [place] [facility] [address] [id number] [place] [address]- 8744 Dec, [facility] [place] [facility] [address] [id number] [place] [address]- 1639 Dec, [facility] [place] [facility] [address] [id number] [place] [address]- 6385 Dec, [facility] [place] [facility] [address] [id number] [place] [address]- 8656 Dec, [facility] [place] [facility] [address] [id number] [place] [address]- 8949 Nov, [facility] [place] [facility] [address] [id number] [place] [address]- 9858 Nov, [facility] [place] [facility] [address] [id number] [place] [address]- 5189 Nov, [facility] [place] [facility] [address] [id number] [place] [address]- 5765 Nov, [facility] [place] [facility] [address] [id number] [place] [address]- 2226 Nov, [facility] [place] [facility] [address] [id number] [place] [address]- 1253 Nov, [facility] [place] [facility] [address] [id number] [place] [address]- 2708 Nov, [facility] [place] [facility] [address] [id number] [place] [address]- 1102 Nov, [facility] [place] [facility] [address] [id number] [place] [address]- 1568 Nov, [facility] [place] [facility] [address] [id number] [place] [address]- 2011 Nov, [facility] [place] [facility] [address] [id number] [place] [address]- 8098 October, [facility] [place] [facility] [address] [id number] [place] [address]- 2445 October, [facility] [place] [facility] [address] [id number] [place] [address]- 9940 October, [facility] [place] [facility] [address] [id number] [place] [address]- 0866 October, [facility] [place] [facility] [address] [id number] [place] [address]- 3439 October, [facility] [place] [facility] [address] [id number] [place] [address]- 3833 October, [facility] [place] [facility] [address] [id number] [place] [address]- 6326 October, [facility] [place] [facility] [address] [id number] [place] [address]- 5025 October, [facility] [place] [facility] [address] [id number] [place] [address]- 7106 October, [facility] [place] [facility] [address] [id number] [place] [address]- 0825 October, [facility] [place] [facility] [address] [id number] [place] [address]- 0414 October, [facility] [place] [facility] [address] [id number] [place] [address]- 8384 October, [facility] [place] [facility] [address] [id number] [place] [address]- 6529 October, [facility] [place] [facility] [address] [id number] [place] [address]- 4556 October, [facility] [place] [facility] [address] [id number] [place] [address]- 1205 October, [facility] [place] [facility] [address] [id number] [place] [address]- 3705 October, [facility] [place] [facility] [address] [id number] [place] [address]- 2479 October, [facility] [place] [facility] [address] [id number] [place] [address]- 7766 Sep, [facility] [place] [facility] [address] [id number] [place] [address]- 9893 Sep, [facility] [place] [facility] [address] [id number] [place] [address]- 2387 Jun, [facility] [place] [facility] [address] [id number] [place] [address]- 3685 Jun, [facility] [place] [facility] [address] [id number] [place] [address]- 0316 Jun, [facility] [place] [facility] [address] [id number] [place] [address]- 4088 Jun, [facility] [place] [facility] [address] [id number] [place] [address]- 7531 Jun, [facility] [place] [facility] [address] [id number] [place] [address]- 5133 Jun, [facility] [place] [facility] [address] [id number] [place] [address]- 1549 Jun, [facility] [place] [facility] [address] [id number] [place] [address]- 8757 Jun, [facility] [place] [facility] [address] [id number] [place] [address]- 0126 15 Jun, 2013 [facility] [address] [id number] [place] [address]- 6761 15 Jun, 2013 [facility] [place] [facility] [address] [id number] [place] [address]- 8891 15 Jun, 2013 [facility] [address] [id number] [place] [address]- 2899 May, [facility] [place] [facility] [address] [id number] [place] [address]- 0580 May, [facility] [address] [id number] [place] [address]- 4682 Apr, [facility] [address] [id number] [place] [address]- 9339 Apr, [facility] [address] [id number] [place] [address]- 1294 Apr, [facility] [address] [id number] [place] [address]- 4903 Apr, [facility] [place] [facility] [address] [id number] [place] [address]- 7048 Apr, [facility] [address] [id number] [place] [address]- 8560 Apr, [facility] [place] [facility] [address] [id number] [place] [address]- 4078 Apr, [facility] [place] [facility] [address] [id number] [place] [address]- 4962 Mar, [facility] [place] [facility] [address] [id number] [place] [address]- 9685 Mar, [facility] [place] [facility] [address] [id number] [place] [address]- 8432 Mar, [facility] [place] [facility] [address] [id number] [place] [address]- 5699 Mar, [facility] [address] [id number] [place] [address]- 5360 Mar, [facility] [place] [facility] [address] [id number] [place] [address]- 5336 Mar, [facility] [place] [facility] [address] [id number] [place] [address]- 2113 Mar, [facility] [place] [facility] [address] [id number] [place] [address]- 4986 Mar, [facility] [address] [id number] [place] [address]- 1356 Feb, [facility] [place] [facility] [address] [id number] [place] [address]- 8701 Dec, [facility] [place] [facility] [address] [id number] [place] [address]- 5800 Nov, [facility] [place] [facility] [address] [id number] [place] [address]- 3826 Nov, [facility] [place] [facility] [address] [id number] [place] [address]- 5604 October, [facility] [place] [facility] [address] [id number] [place] [address]- 7368 October, [facility] [place] [facility] [address] [id number] [place] [address]- 2979 October, [facility] [place] [facility] [address] [id number] [place] [address]- 3840 October, [facility] [place] [facility] [address] [id number] [place] [address]- 8394 October, [facility] [place] [facility] [address] [id number] [place] [address]- 0906 October, [facility] [place] [facility] [address] [id number] [place] [address]- 8201 October, [facility] [place] [facility] [address] [id number] [place] [address] 2546 Aug, [facility] [place] [facility] [address] [facility] [id number] [place] [address]- 7285 Aug, [facility] [place] [facility] [address] [facility] [id number] [place] [address]- 0926 Jul, [facility] [place] [facility] [address] [facility] [id number] [place] [address]- 2546 Jun, [facility] [place] [facility] [address] [facility] [id number] [place] [address]- 0403 May, [facility] [place] [facility] [address] [id number] [address]- 8769 May, [facility] [place] [facility] [address] [id number] [address]- 7766 Apr, [facility] [place] [facility] [address] [address]- 7676 Apr, [facility] [place] [facility] [address] [id number] [address]- 6346 Mar, [facility] [place] [facility] [address]00565[address] [address] 2546 Mar, [facility] [id number] [address] Mar, [facility] [place] [facility] [address] [address]- 2546 Mar, [facility] [place] [facility] [address] [id number] [address]- 2546 Feb, [facility] [address] [facility] [id number][place] [address] Feb, [facility] [place] [facility] [address] [id number] [address]- 2546 Jan, [facility] [place] [facility] [address] [id number] [address]- 2546 Dec, [facility] [place] [facility] [address] [place] [address]- 3528 October, [facility] [address] [id number] [place] [address]- 4035 Sep, [facility] [place] [facility] [address] [id number] [place] [address]- 2007 Sep, [facility] [place] [facility] [address] [id number] [place] [address]- 6463 Sep, [facility] [place] [facility] [address] [id number] [place] [address]- 8059 Sep, [facility] [place] [facility] [address] [id number] [place] [address]- 9491 Sep, [facility] [place] [facility] [address] [id number] [place] [address]- 4248 Sep, [facility] [address] [id number] [place] [address]- 3563 Sep, [facility] [place] [facility] [address] [id number] [place] [address]- 7683 Aug, [facility] [place] [facility] [address] [id number] [place] [address]- 3610 Aug, [facility] [place] [facility] [address] [id number] [place] [address]- 4511 Aug, [facility] [place] [facility] [address] [id number] [place] [address]- 7169 May, [facility] [place] [facility] [address] [id number] [place] [address]- 2979 Apr, [facility] [place] [facility] [address] [id number] [place] [address]- 7511 Mar, [facility] [place] [facility] [address] [id number] [place] [address]- 2400 Mar, [facility] [place] [facility] [address] [id number] [place] [address]- 5857 14 Jun, 2009 [facility] [address] [facility] [id number] [place] [address]- 3855 16 Apr, 2009 IMMUNIZATIONS No Known Immunizations SOCIAL HISTORY Never Assessed REASON FOR VISIT [facility] Contact PLAN OF CARE VITAL SIGNS MEDICATIONS No [...]
--- OUTSIDE RECORDS SUMMARY | 2018-01-29 06:18 | XMS REPORT ---
Author Author BELÉN TOVAR Organization [employer] Address Unknown Phone Unavailable Care Team Providers Care Billing Associate Name Role Phone BELÉN TOVAR CP Unavailable [...]
--- OUTSIDE RECORDS SUMMARY | 2018-01-29 06:18 | XMS REPORT ---
Author Author BELÉN TOVAR Organization [employer] Address Unknown Phone Unavailable Care Team Providers Care Occupational Therapy Aides Teacher Name Role Phone BELÉN TOVAR CP Unavailable Allergies No Known Allergies Problems Problem Type Condition Code Onset Dates Condition Status Problem Gastroesophageal reflux disease, esophagitis presence not specified K21.9 Active Assessment Sleep disturbance G47.9 Active Problem Sleep disturbance G47.9 Active Medications No Known Medications Procedures Procedure Coding System Code Date VENIPUNCT, ROUTINE* CPT-4 27305 Mar 22, 2016 LAB NOT BILLED BY [facility] CPT-4 NOBLL Mar 22, 2016 Results Name Result Date Reference Range Unit Abnormality Flag ROUTINE VENIPUNCTURE Summary Purpose [employer] Submission
--- OUTSIDE RECORDS SUMMARY | 2018-01-29 06:18 | XMS REPORT ---
Author Author LIYAH CLARKE Organization [facility] Address [address] [place] [address] Care Team Providers Care [employer] Worker Name Role Phone LIYAH CLARKE Unavailable PROBLEMS Type Condition ICD9-CM Code VXN70-HY Code Onset Dates Condition Status SNOMED Code Problem Tobacco abuse counseling Z71.6 Active 278217340 Problem Anxiety associated with depression F41.8 Active 854576040 Problem Psoriatic arthritis L40.50 Active 090106106 Problem Gastroesophageal reflux disease, esophagitis presence not specified K21.9 Active 576732462 Problem Sleep disturbance G47.9 Active 93954744 Problem Tobacco abuse Z72.0 Active 287209149 Problem Polydipsia R63.1 Active 26234455 Problem Microscopic hematuria R31.29 Active 905722209 Problem Depressed mood F32.9 Active 079829857 Problem Elevated liver enzymes R74.8 Active 085779117 Problem Cigarette smoker one half pack a day or less F17.210 Active 37416274 Problem Hypertriglyceridemia E78.1 Active 061819511 ALLERGIES Substance Reaction Event Type Date Status Sulfa Unknown Non Drug Allergy Feb, Active ENCOUNTERS Encounter Location Date Diagnosis [facility] [id number] [id number] Dec, [facility] [employer] [facility] [id number][place] [id number] October, Dental examination Z01.20 [facility] [employer] [facility] [id number][place] [id number] Jul, [facility] [address] [facility] [id number][place] [id number] Jun, GE (gastroenteritis) K52.9 [facility] [employer] [facility] [id number][place] [id number] May, Microscopic hematuria R31.[address] [facility] [address] [id number][place] [id number] May, Polydipsia R63.1 ; Gastroesophageal reflux disease, esophagitis presence not specified K21.9 ; Cigarette smoker one half pack a day or less F17.210 and Microscopic hematuria R31.29 [facility] [place] [address] [id number][place] [id number] 19 Feb, 2017 Acute non-recurrent maxillary sinusitis J01.00 and Sinus pressure J34.89 [facility] [place] [address] [facility] [id number], [place] [id number] Feb, Tinea pedis of left foot B35.[address] [facility] [address] [id number][place] [id number] October, Gastroesophageal reflux disease, esophagitis presence not specified K21.9 and Psoriatic arthritis L40.[address] [facility] [address] [id number][place] [address] October, [facility] [address] [id number][place] [address] Jun, [facility] [address] [id number][place] [address] Jun, Gastroesophageal reflux disease, esophagitis presence not specified K21.9 and Hypertriglyceridemia E78.[address] [facility] [address] [id number], [place] [id number] May, Psoriatic arthritis L40.[address] [facility] [address] [id number][place] [id number] Apr, [facility] [address] [id number][place] [address] Apr, Depressed mood F32.9 ; Tobacco abuse Z72.0 ; Tobacco abuse counseling Z71.6 and Psoriatic arthritis L40.[address] [facility] [address] [id number], [place] [id number] Apr, [facility] [address] [id number][place] [address] Apr, Depressed mood F32.[address] [facility] [address] [id number], [place] [address] Mar, Elevated liver enzymes R74.[address] [facility] [address] [id number], [place] [address] Mar, Elevated liver enzymes R74.[address] [facility] [address] [id number][place] [address] Mar, Elevated liver enzymes R74.[address] [facility] [address] [id number], [place] [address] Mar, [facility] [address] [id number], [place] [id number] Mar, Sleep disturbance G47.[address] [facility] [address] [id number], [place] [address] Mar, Sleep disturbance G47.9 and Gastroesophageal reflux disease, esophagitis presence not specified K21.[address] [facility] [address] [id number], [place] [address] Mar, Anxiety associated with depression F41.[address] [facility] [address] [id number], [place] [address] Nov, [facility] [place] [facility] [id number], [place] [address] Sep, [facility] [place] [facility] [id number], [place] [address] Sep, [facility] [place] [facility] [address] [id number], [place] [address] Jul, [facility] [place] [facility] [id number], [place] [address] Jul, [facility] [place] [facility] [address] [id number], [place] [address] Jul, [facility] [place] [facility] [id number] [place] [address] 12 Jul, 2014 [facility] [place] [facility] [address] [id number] [place] [address] Jul, 2014 [facility] [place] [facility] [address] [id number] [place] [address]- 6536 Jul, 2014 [facility] [place] [facility] [address] [id number] [place] [address] Jul, 2014 [facility] [place] [facility] [address] [id number] [place] [address]28 Jul, 2014 [facility] [place] [facility] [address] [id number] [place] [address]646 Jul, 2014 [facility] [place] [facility] [address] [facility] [id number] [place] [address]607 May, [facility] [place] [facility] [address] [facility] [id number] [place] [address] 0622 May, [facility] [place] [facility] [address] [facility] [id number] [place] [address]- 6185 May, [facility] [place] [facility] [address] [facility] [id number] [place] [address]- 7795 May, [facility] [place] [facility] [address] [facility] [id number] [place] [address]- 8444 May, [facility] [place] [facility] [address] [facility] [id number] [place] [address]- 2541 May, [facility] [place] [facility] [address] [facility] [id number] [place] [address] 5658 Apr, [facility] [place] [facility] [address] [facility] [id number] [place] [address]- 1466 Apr, [facility] [place] [facility] [address] [facility] [id number] [place] [address]- 9686 Mar, [facility] [place] [facility] [address] [facility] [id number] [place] [address]- 4060 Mar, [facility] [place] [facility] [address] [id number] [place] [address]- 7145 Mar, [facility] [place] [facility] [address] [id number] [place] [address]- [address]386 Mar, [facility] [place] [facility] [address] [id number] [place] [address]- 1546 Mar, [facility] [place] [facility] [address] [id number] [place] [address]- 6693 Mar, [facility] [place] [facility] [address] [id number] [place] [address]- 4167 Mar, [facility] [place] [facility] [address] [id number] [place] [address]- 4393 Feb, [facility] [place] [facility] [address] [id number] [place] [address]- 9626 Feb, [facility] [place] [facility] [address] [id number] [place] [address]- [address] Dec, [facility] [place] [facility] [address] [id number] [place] [address]- 7622 Dec, [facility] [place] [facility] [address] [id number] [place] [address]- 6856 Dec, [facility] [place] [facility] [address] [id number], [place] [address] 7914 Dec, [facility] [place] [facility] [address] [id number], [place] [address]- [address]32 Dec, [facility] [place] [facility] [address] [id number] [place] [address]- 9749 Dec, [facility] [place] [facility] [address] [id number] [place] [address]- [address]99 Nov, [facility] [place] [facility] [address] [id number] [place] [address]- 4988 Nov, [facility] [place] [facility] [address] [id number] [place] [address]- 2368 Nov, [facility] [place] [facility] [address] [id number] [place] [address]- 1777 Nov, [facility] [place] [facility] [address] [id number] [place] [address]- 7672 Nov, [facility] [place] [facility] [address] [id number] [place] [address] Nov, [facility] [place] [facility] [address] [id number] [place] [address]- 5411 Nov, [facility] [place] [facility] [address] [id number] [place] [address]- 1532 Nov, [facility] [place] [facility] [address] [id number] [place] [address]- 6271 Nov, [facility] [place] [facility] [address] [id number] [place] [address]- 3609 Nov, [facility] [place] [facility] [address] [id number] [place] [address]- 2968 October, [facility] [place] [facility] [address] [id number] [place] [address]- 4332 October, [facility] [place] [facility] [address] [id number] [place] [address]- 2523 October, [facility] [place] [facility] [address] [id number] [place] [address]- 0806 October, [facility] [place] [facility] [address] [id number] [place] [address]- 9097 October, [facility] [place] [facility] [address] [id number] [place] [address]- 8003 October, [facility] [place] [facility] [address] [id number] [place] [address]- 0016 October, [facility] [place] [facility] [address] [id number] [place] [address]- 0098 October, [facility] [place] [facility] [address] [id number] [place] [address]- 8782 October, [facility] [address] [id number] [place] [address]- 4242 October, [facility] [address] [id number] [place] [address]- 3818 October, [facility] [address] [id number] [place] [address]- 2051 October, [facility] [address] [id number] [place] [address]- 0315 October, [facility] [address] [id number] [place] [address]- 6210 October, [facility] [address] [id number] [place] [address]- 7390 October, [facility] [address] [id number] [place] [address]- 9960 October, [facility] [address] [id number] [place] [address]- 4372 October, [facility] [address] [id number] [place] [address]- 7965 Sep, [facility] [place] [facility] [address] [id number] [place] [address]- 1319 Sep, [facility] [address] [id number] [place] [address]- 3355 Jun, [facility] [place] [facility] [address] [id number] [place] [address]- 3947 Jun, [facility] [place] [facility] [address] [id number] [place] [address]- 0379 Jun, [facility] [place] [facility] [address] [id number] [place] [address]- 7948 Jun, [facility] [place] [facility] [address] [id number] [address]- 4656 Jun, [facility] [place] [facility] [address] [id number] [place] [address]- 7165 17 Jun, 2013 [facility] [place] [facility] [address] [id number] [place] [address]- 8278 16 Jun, 2013 [facility] [place] [facility] [address] [id number] [place] [address]- 9303 15 Jun, 2013 [facility] [place] [facility] [address] [id number] [place] [address]- 1055 15 Jun, 2013 [facility] [place] [facility] [address] [id number] [place] [address]- 6425 15 Jun, 2013 [facility] [place] [facility] [address] [id number] [place] [address]- 8860 15 Jun, 2013 [facility] [place] [facility] [address] [id number] [place] [address]- 7659 May, [facility] [place] [facility] [address] [id number] [place] [address]- 0338 May, [facility] [place] [facility] [address] [id number] [place] [address]- 4568 Apr, [facility] [place] [facility] [address] [id number] [place] [address]- 3362 Apr, [facility] [place] [facility] [address] [id number], [place] [address]- 7862 Apr, [facility] [place] [facility] [address] [id number], [place] [address]- 9651 Apr, [facility] [place] [facility] [address] [id number] [place] [address]- 3751 Apr, [facility] [place] [facility] [address] [id number] [place] [address]- 6006 Apr, [facility] [place] [facility] [address] [id number] [place] [address]- 6106 Apr, [facility] [place] [facility] [address] [id number] [place] [address]- 1368 Mar, [facility] [address] [id number] [place] [address]- 5062 Mar, [facility] [place] [facility] [address] [id number] [place] [address] 2546 Mar, [facility] [address] [id number] [place] [address]- 8167 Mar, [facility] [address] [id number] [place] [address]- 9299 Mar, [facility] [address] [id number] [place] [address]- 9583 Mar, [facility] [address] [id number] [place] [address]- 7909 Mar, [facility] [address] [id number] [place] [address]- 4348 Mar, [facility] [address] [id number] [place] [address]- 9254 Feb, [facility] [address] [id number] [place] [address]- 6507 Dec, [facility] [address] [id number] [place] [address]- 9479 Nov, [facility] [place] [facility] [address] [id number] [place] [address]- 2546 Nov, [facility] [address] [id number] [place] [address]- 1311 October, [facility] [place] [facility] [address] [id number] [place] [address]- 2546 October, [facility] [place] [facility] [address] [id number] [place] [address]- 2546 October, [facility] [place] [facility] [address] [id number] [place] [address]- 9869 October, [facility] [address] [id number] [place] [address]- 5309 October, [facility] [address] [id number] [place] [address]- 8416 October, [facility] [address] [facility] [id number] [place] [address]- 4716 October, [facility] [address] [id number] [place] [address]- 3976 Aug, [facility] [address] [id number] [place] [address]- 1810 Aug, [facility] [address] [id number] [place] [address]- 9896 Jul, [facility] [address] [id number] [place] [address]- 9600 Jun, [facility] [address] [id number], [place] [address]- 3633 May, [facility] [address] [id number], [place] [address]- 6832 May, [facility] [address] [facility] [id number], [place] [address]- 7086 Apr, [facility] [address] [facility] [id number], [place] [address]- 9616 Apr, [facility] [address] [facility] [id number], [place] [address]- 9616 Mar, [facility] [address] [facility] [id number], [place] [address]- 2546 Mar, [facility] [address] [id number][place] [id number] Mar, [facility] [address] [facility] [id number], [place] [address]- 2546 Mar, [facility] [address] [facility] [id number], [place] [address]- 1648 Feb, [facility] [address] [id number] [place] [id number] Feb, [facility] [address] [id number] [place] [address]- 4667 Jan, [facility] [place] [facility] [address] [id number] [place] [address]- 2423 Dec, [facility] [place] [facility] [address] [id number] [place] [address]- 8212 October, [facility] [place] [facility] [address] [id number] [place] [address]- 2484 Sep, [facility] [place] [facility] [address] [id number] [place] [address]- 0534 Sep, [facility] [place] [facility] [address] [id number] [place] [address]- 3061 Sep, [facility] [place] [facility] [address] [id number] [place] [address]- 7246 Sep, [facility] [place] [facility] [address] [id number] [place] [address]- 8306 Sep, [facility] [place] [facility] [address] [id number] [place] [address]- 3258 Sep, [facility] [place] [facility] [address] [id number], [place] [address]- 6234 Sep, [facility] [place] [facility] [address] [id number], [place] [address]- 3198 Aug, [facility] [place] [facility] [address] [id number] [place] [address]- 9989 Aug, [facility] [place] [facility] [address] [id number] [place] [address]- 1203 Aug, [facility] [place] [facility] [address] [id number] [place] [address]- 3079 May, [facility] [place] [facility] [address] [facility] [id number] [place] [address]- 4808 Apr, [facility] [address] [facility] [id number][place]- 7553 Mar, [facility] [address] [facility] [id number], [place] [address]- 7604 Mar, [facility] [address] [facility] [id number], [place] [address]- 9978 Jun, [facility] [address] [facility] [id number][place] 8745 Apr, IMMUNIZATIONS Vaccine Route Administration Date Status SOLUMEDROL (UP TO 125 MG) IM Intramuscular Feb 20, 2017 Administered SOCIAL HISTORY Never Assessed REASON FOR VISIT Pt c/o cough, thick sputum, sinus pressure started Ivone WEEKS PLAN OF CARE Activity Details Follow Up prn if not improvign in clinic or with PCP Reason: VITAL SIGNS Height 66 in 2017-02-20 Weight 177.4 lbs 2017-02-20 Temperature 98.1 degrees Fahrenheit 2017-02-20 Heart Rate 88 bpm 2017-02-20 Respiratory Rate 16 2017-02-20 BMI 28.63 kg/m2 2017-02-20 Blood pressure systolic 124 mmHg 2017-02-20 Blood pressure diastolic 68 mmHg 2017-02-20 MEDICATIONS Medication Instructions Dosage Frequency Start Date End Date Duration Status Omeprazole 40 mg Orally Once a day 1 capsule 24h Jul, 90 days Active Meloxicam 7.5 MG Orally twice a day 1 as needed for pain, take with food 12h October, Active Sudafed 60 mg Orally every 6 hrs 1 tablet as needed 6h Feb, 14 days Active Augmentin 875-125 MG Orally every 12 hrs 1 tablet 12h Feb,Feb 10 day(s) Active Econazole Nitrate 1 % Externally Once a day 1 application to affected area 24h Feb, Feb, 14 day(s) Not-Taking Diflucan 150 MG Orally once and may repeat once 1 tablet Feb, Feb, 03 days Active RESULTS No Results PROCEDURES Procedure Date Ordered Result Body Site SOLUMEDROL (UP TO 125 MG) Feb 20, 2017 THER/PROPH/DIAG INJ, SC/IM Feb 20, 2017 INSTRUCTIONS MEDICATIONS ADMINISTERED No Known Medications [...]
--- OUTSIDE RECORDS SUMMARY | 2018-01-29 06:20 | XMS REPORT ---
Author Author BELÉN TOVAR Organization [employer] Address Unknown Phone Unavailable Care Team Providers Care Coffee Bar Attendant Name Role Phone BELÉN TOVAR CP Unavailable Allergies, Adverse Reactions, Alerts Substance Reaction Event Type Sulfa Info Not Available Non Drug Allergy Problems Problem Type Condition Code Onset Dates Condition Status Problem Gastroesophageal reflux disease, esophagitis presence not specified K21.9 Active Assessment Sleep disturbance G47.9 Active Problem Sleep disturbance G47.9 Active Assessment Gastroesophageal reflux disease, esophagitis presence not specified K21.9 Active Medications Medication Code System Code Instructions Start Date End Date Status Dosage cetirizine [facility] [address]-01 10 mg Mar 03, 2014 1 tablet by Oral route 1 daily allergies Triamcinolone Acetonide [facility] [address]-15 0.1 % Jul 16, 2014 apply a thin layer to the affected area(s) by Topical route 2 times per day on for 2 weeks, off x 2 weeks Seroquel [facility] [address]-38 25 MG Orally Once a day at bedtime, may increase to 2 pills at bedtime in 2 weeks Mar 15, 2016 1 tablet Omeprazole [facility] [address]-41 40 mg Orally Jul 16, 2014 take 1 capsule by Oral route before a meal 1 time per day Procedures Procedure Coding System Code Date Office Visit, Est Pt., Level 3 CPT-4 96227 Mar 15, 2016 Vital Signs Date/Time: Mar 15, 2016 Cardiac Monitoring Heart Rate 90 bpm Weight 186.2 lbs Height 66 in BMI 30.05 Index Blood Pressure Diastolic 82 mmHg Blood Pressure Systolic 122 mmHg Results No Known Results Summary Purpose [employer] Submission
--- OUTSIDE RECORDS SUMMARY | 2018-01-29 06:20 | XMS REPORT ---
Author Author BELÉN TOVAR Organization [employer] Address Unknown Phone Unavailable Care Team Providers Care Public Transportation Inspector Name Role Phone BELÉN TOVAR Unavailable Allergies No Known Allergies Problems Problem Type Condition Code Onset Dates Condition Status Problem Gastroesophageal reflux disease, esophagitis presence not specified K21.9 Active Problem Elevated liver enzymes R74.8 Active Problem Anxiety associated with depression F41.8 Active Problem Depressed mood F32.9 Active Problem Tobacco abuse counseling Z71.6 Active Problem Sleep disturbance G47.9 Active Problem Psoriatic arthritis L40.50 Active Problem Tobacco abuse Z72.0 Active Medications Medication Code System Code Instructions Start Date End Date Status Dosage Seroquel [facility] [address]-65 100 MG Orally Once a day at bedtime, may increase to 2 pills at bedtime in 2 weeks Mar 15, 2016 1 tablet Chantix [facility] [address]-58 0.5 MG Orally Once a day x 2 weeks then bid Apr 25, 2016 1 tablet Results No Known Results Summary Purpose [employer] Submission
--- OUTSIDE RECORDS SUMMARY | 2018-01-29 06:21 | XMS REPORT | Continuity of Care Document ---
Author Author [facility] Address Unknown Phone Unavailable Allergies Active Description Code Type Severity Reaction Onset Reported/Identified Relationship to Patient Clinical Status Yes Sulfa (Sulfonamide Antibiotics) [id number] Drug Allergy Unknown N/A 2013 Medications There is no data. Problems Date Dx Coded Attending Type Code Diagnosis Diagnosed By 06/17/2009 V72.31 Pelvic Exam ( Internal) 06/17/2009 VI ZHENG DDS V72.31 Pelvic Exam (Internal) 06/17/2009 BELÉN TOVAR APRN V72.31 Pelvic Exam (Internal) 06/17/2009 V72.31 Pelvic Exam ( Internal) 06/17/2009 V72.31 Pelvic Exam ( Internal) 06/17/2009 V72.31 Pelvic Exam ( Internal) 06/17/2009 V72.31 Pelvic Exam ( Internal) 06/17/2009 JUS VINES APRN V72.31 Pelvic Exam (Internal) 06/17/2009 BACK CHEYANNE FARRELL V72.31 Pelvic Exam (Internal) 06/17/2009 CHEYANNE BACK DO V72.31 Pelvic Exam (Internal) 06/17/2009 MOSES ABRAHAM APRN V72.31 Pelvic Exam (Internal) 06/17/2009 CHEYANNE BACK DO V72.31 Pelvic Exam (Internal) 06/17/2009 CHEYANNE BACK DO V72.31 Pelvic Exam (Internal) 06/17/2009 BELÉN TOVAR APRN V72.31 Pelvic Exam (Internal) 06/17/2009 ANDREW FLORES APRN V72.31 Pelvic Exam (Internal) 06/17/2009 SHAINA CABRERA DDS V72.31 Pelvic Exam (Internal) 06/17/2009 BELÉN TOVAR APRN V72.31 Pelvic Exam (Internal) 06/17/2009 BELÉN TOVAR APRN V72.31 Pelvic Exam (Internal) 06/17/2009 SHAINA CABRERA DDS V72.31 Pelvic Exam (Internal) 06/17/2009 CHEYANNE BACK DO V72.31 Pelvic Exam (Internal) 06/17/2009 BELÉN TOVAR APRN V72.31 Pelvic Exam (Internal) 06/17/2009 CHEYANNE BACK DO V72.31 Pelvic Exam (Internal) 06/17/2009 ANABELA LUI MD V72.31 Pelvic Exam (Internal) 06/17/2009 CHEYANNE BACK DO V72.31 Pelvic Exam (Internal) 12/12/2010 Ot 300.00 ANXIETY STATE NOS 12/12/2010 Ot 781.0 ABN INVOLUN MOVEMENT NEC 03/14/2011 Ot 847.2 SPRAIN LUMBAR REGION 03/14/2011 Ot 959.19 OTH INJURY OF OTHER SITES OF TRUNK 03/14/2011 Ot E000.8 OTHER EXTERNAL CAUSE STATUS 03/14/2011 Ot E849.0 ACCIDENT IN HOME 03/14/2011 Ot E927.0 OVEREXERTION FROM SUDDEN STRENUOUS MOVEM 08/30/2011 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.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 08/30/2011 V01.79 exposed to herpes zoster 08/30/2011 V74.5 visit for: screening exam bact/spirochetal venereal disease 08/30/2011 NORM DDS VI F 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.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 08/30/2011 NORM COWANS VI Baker V01.79 exposed to herpes zoster 08/30/2011 NORM COWANS VI Baker V74.5 visit for: screening exam bact/spirochetal venereal disease 08/30/2011 BELÉN TOVAR APRN 078.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 08/30/2011 BELÉN TOVAR APRN V01.79 exposed to herpes zoster 08/30/2011 BELÉN TOVAR APRN V74.5 visit for: screening exam bact/spirochetal venereal disease 08/30/2011 078.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 08/30/2011 V01.79 exposed to herpes zoster 08/30/2011 V74.5 visit for: screening exam bact/spirochetal venereal disease 08/30/2011 078.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 08/30/2011 V01.79 exposed to herpes zoster 08/30/2011 V74.5 visit for: screening exam bact/spirochetal venereal disease 08/30/2011 078.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 08/30/2011 V01.79 exposed to herpes zoster 08/30/2011 V74.5 visit for: screening exam bact/spirochetal venereal disease 08/30/2011 078.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 08/30/2011 V01.79 exposed to herpes zoster 08/30/2011 V74.5 visit for: screening exam bact/spirochetal venereal disease 08/30/2011 MOHINDER LIGHT BULB TESTER, JUS S 078.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 08/30/2011 MOHINDER LIGHT BULB TESTER, JUS S V01.79 exposed to herpes zoster 08/30/2011 MOHINDER LIGHT BULB TESTER, JUS S V74.5 visit for: screening exam bact/spirochetal venereal disease 08/30/2011 BACK DO CHEYANNE K 078.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 08/30/2011 NAZANIN FARRELL CHEYANNE K V01.79 exposed to herpes zoster 08/30/2011 NAZANIN FARRELL CHEYANNE K V74.5 visit for: screening exam bact/spirochetal venereal disease 08/30/2011 NAZANIN FARRELL CHEYANNE K 078.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 08/30/2011 NAZANIN FARRELL HCEYANNE K V01.79 exposed to herpes zoster 08/30/2011 NAZANIN FARRELL CHEYANNE K V74.5 visit for: screening exam bact/spirochetal venereal disease 08/30/2011 RENEE ABRAHAM APRNCY N 078.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 08/30/2011 SILVIANO CASHMARCIO LIGHT BULB TESTER, MOSES N V01.79 exposed to herpes zoster 08/30/2011 SHORE CASHERO LIGHT BULB TESTER, MOSES N V74.5 visit for: screening exam bact/spirochetal venereal disease 08/30/2011 BACK DO CHEYANNE K 078.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 08/30/2011 BACK DO CHEYANNE K V01.79 exposed to herpes zoster 08/30/2011 BACK DO CHEYANNE K V74.5 visit for: screening exam bact/spirochetal venereal disease 08/30/2011 NAZANIN FARRELL CHEYANNE K 078.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 08/30/2011 BACK DO, CHEYANNE K V01.79 exposed to herpes zoster 08/30/2011 BACK DOSTEVOA K V74.5 visit for: screening exam bact/spirochetal venereal disease 08/30/2011 GUY DAVISBELÉN Ambrose L 078.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 08/30/2011 GUY DAVISArnol BELÉN L V01.79 exposed to herpes zoster 08/30/2011 GUY BELÉN ENCISO L V74.5 visit for: screening exam bact/spirochetal venereal disease 08/30/2011 FLORES ANDREW ENCISO 078.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 08/30/2011 FLORES ANDREW ENCISO V01.79 exposed to herpes zoster 08/30/2011 FLORES ANDREW ENCISO V74.5 visit for: screening exam bact/spirochetal venereal disease 08/30/2011 RICK COWANS, SHAINA Pretty 078.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 08/30/2011 RICK COWANS, SHAINA Pretty V01.79 exposed to herpes zoster 08/30/2011 RICK COWANS, SHAINA D V74.5 visit for: screening exam bact/spirochetal venereal disease 08/30/2011 GUY BELÉN ENCISO L 078.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 08/30/2011 GUY DAVISYARON AmbroseSON L V01.79 exposed to herpes zoster 08/30/2011 GUY YARON ENCISOSON L V74.5 visit for: screening exam bact/spirochetal venereal disease 08/30/2011 ADRIENBELÉN CUTLER APRN L 078.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 08/30/2011 GUY DAVISYARON AmbroseSON L V01.79 exposed to herpes zoster 08/30/2011 GUY YARON ENCISOSON L V74.5 visit for: screening exam bact/spirochetal venereal disease 08/30/2011 RICK DDS, SHAINA D 078.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 08/30/2011 RICK DDS, SHAINA D V01.79 exposed to herpes zoster 08/30/2011 RICK DDS, SHAINA D V74.5 visit for: screening exam bact/spirochetal venereal disease 08/30/2011 CHEYANNE BACK DO K 078.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 08/30/2011 BACK DO, CHEYANNE K V01.79 exposed to herpes zoster 08/30/2011 NAZANIN FARRELL CHEYANNE K V74.5 visit for: screening exam bact/spirochetal venereal disease 08/30/2011 ADRIENBELÉN CUTLER APRN 078.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 08/30/2011 GUY BELÉN ENCISO V01.79 exposed to herpes zoster 08/30/2011 GUY DAVISBELÉN Ambrose V74.5 visit for: screening exam bact/spirochetal venereal disease 08/30/2011 BACK STEVO FARRELLA K 078.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 08/30/2011 NAZANIN FARRELL CHEYANNE K V01.79 exposed to herpes zoster 08/30/2011 BACK DO CHEYANNE K V74.5 visit for: screening exam bact/spirochetal venereal disease 08/30/2011 HU SAMPSON, ANABELA Estrada 078.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 08/30/2011 HU SAMPSON, ANABELA Estrada V01.79 exposed to herpes zoster 08/30/2011 ANABELA LUI MD V74.5 visit for: screening exam bact/spirochetal venereal disease 08/30/2011 BACK STEVO FARRELLA K 078.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 08/30/2011 NAZANIN FARRELL CHEYANNE K V01.79 exposed to herpes zoster 08/30/2011 BACK DO CHEYANNE K V74.5 visit for: screening exam bact/spirochetal venereal disease 09/13/2011 795.05 Cervical High Risk Human Papilloma Virus DNA Test 09/13/2011 NORM ALCANTAR, VI Baker 795.05 Cervical High Risk Human Papilloma Virus DNA Test 09/13/2011 BELÉN TOVAR APRN 795.05 Cervical High Risk Human Papilloma Virus DNA Test 09/13/2011 795.05 Cervical High Risk Human Papilloma Virus DNA Test 09/13/2011 795.05 Cervical High Risk Human Papilloma Virus DNA Test 09/13/2011 795.05 Cervical High Risk Human Papilloma Virus DNA Test 09/13/2011 795.05 Cervical High Risk Human Papilloma Virus DNA Test 09/13/2011 JUS VINES APRN 795.05 Cervical High Risk Human Papilloma Virus DNA Test 09/13/2011 BACK DO, CHEYANNE K 795.05 Cervical High Risk Human Papilloma Virus DNA Test 09/13/2011 BACK DO, CHEYANNE K 795.05 Cervical High Risk Human Papilloma Virus DNA Test 09/13/2011 MOSES ABRAHAM APRN Arnol 795.05 Cervical High Risk Human Papilloma Virus DNA Test 09/13/2011 BACK DO, CHEYANNE K 795.05 Cervical High Risk Human Papilloma Virus DNA Test 09/13/2011 BACK DO, CHEYANNE K 795.05 Cervical High Risk Human Papilloma Virus DNA Test 09/13/2011 ADRIENBELÉN CUTLER APRN 795.05 Cervical High Risk Human Papilloma Virus DNA Test 09/13/2011 ANDREW FLORES APRN 795.05 Cervical High Risk Human Papilloma Virus DNA Test 09/13/2011 RICK COWANS, SHAINA Pretty 795.05 Cervical High Risk Human Papilloma Virus DNA Test 09/13/2011 BELÉN TOVAR APRN 795.05 Cervical High Risk Human Papilloma Virus DNA Test 09/13/2011 BELÉN TOVAR APRN L 795.05 Cervical High Risk Human Papilloma Virus DNA Test 09/13/2011 RICK COWANS, SHAINA Pretty 795.05 Cervical High Risk Human Papilloma Virus DNA Test 09/13/2011 BACK , CHEYANNE K 795.05 Cervical High Risk Human Papilloma Virus DNA Test 09/13/2011 GUY BELÉN ENCISO L 795.05 Cervical High Risk Human Papilloma Virus DNA Test 09/13/2011 BACK , CHEYANNE K 795.05 Cervical High Risk Human Papilloma Virus DNA Test 09/13/2011 HU SAMPSON, ANABELA Estrada 795.05 Cervical High Risk Human Papilloma Virus DNA Test 09/13/2011 BACK DO, CHEYANNE K 795.05 Cervical High Risk Human Papilloma Virus DNA Test 10/24/2011 461.9 SINUSITIS ACUTE 10/24/2011 477.0 ALLERGIC RHINITIS - POLLEN 10/24/2011 696.1 PSORIASIS 10/24/2011 NORM DDS, VI Baker 461.9 SINUSITIS ACUTE 10/24/2011 NORM DDS, VI F 477.0 ALLERGIC RHINITIS - POLLEN 10/24/2011 NORM DDS, VI F 696.1 PSORIASIS 10/24/2011 EATON LIGHT BULB TESTER, BELÉN L 461.9 SINUSITIS ACUTE 10/24/2011 BELÉN TOVAR APRN L 477.0 ALLERGIC RHINITIS - POLLEN 10/24/2011 BELÉN TOVAR APRN L 696.1 PSORIASIS 10/24/2011 461.9 SINUSITIS ACUTE 10/24/2011 477.0 ALLERGIC RHINITIS - POLLEN 10/24/2011 696.1 PSORIASIS 10/24/2011 461.9 SINUSITIS ACUTE 10/24/2011 477.0 ALLERGIC RHINITIS - POLLEN 10/24/2011 696.1 PSORIASIS 10/24/2011 461.9 SINUSITIS ACUTE 10/24/2011 477.0 ALLERGIC RHINITIS - POLLEN 10/24/2011 696.1 PSORIASIS 10/24/2011 461.9 SINUSITIS ACUTE 10/24/2011 477.0 ALLERGIC RHINITIS - POLLEN 10/24/2011 696.1 PSORIASIS 10/24/2011 MOHINDERBANDAR DAVISN, JUS S 461.9 SINUSITIS ACUTE 10/24/2011 MOHINDER LIGHT BULB TESTER, JUS S 477.0 ALLERGIC RHINITIS - POLLEN 10/24/2011 MOHINDER LIGHT BULB TESTER, JUS S 696.1 PSORIASIS 10/24/2011 BACK DO, CHEYANNE K 461.9 SINUSITIS ACUTE 10/24/2011 BACK DO, CHEYANNE K 477.0 ALLERGIC RHINITIS - POLLEN 10/24/2011 BACK DO, CHEYANNE K 696.1 PSORIASIS 10/24/2011 BACK DO, CHEYANNE K 461.9 SINUSITIS ACUTE 10/24/2011 BACK DO, CHEYANNE K 477.0 ALLERGIC RHINITIS - POLLEN 10/24/2011 BACK DO, CHEYANNE K 696.1 PSORIASIS 10/24/2011 SHORE CASHERO LIGHT BULB TESTER, MOSES N 461.9 SINUSITIS ACUTE 10/24/2011 SHORE CASHERO LIGHT BULB TESTER, MOSES N 477.0 ALLERGIC RHINITIS - POLLEN 10/24/2011 SHORE CASHERO LIGHT BULB TESTER, MOSES N 696.1 PSORIASIS 10/24/2011 BACK DO, CHEYANNE K 461.9 SINUSITIS ACUTE 10/24/2011 BACK DO, CHEYANNE K 477.0 ALLERGIC RHINITIS - POLLEN 10/24/2011 BACK DO, CHEYANNE K 696.1 PSORIASIS 10/24/2011 BACK DO, CHEYANNE K 461.9 SINUSITIS ACUTE 10/24/2011 BACK DO, CHEYANNE K 477.0 ALLERGIC RHINITIS - POLLEN 10/24/2011 BACK DO, CHEYANNE K 696.1 PSORIASIS 10/24/2011 EATON LIGHT BULB TESTER, BELÉN L 461.9 SINUSITIS ACUTE 10/24/2011 EATON LIGHT BULB TESTER, BELÉN L 477.0 ALLERGIC RHINITIS - POLLEN 10/24/2011 EATON LIGHT BULB TESTER, BELÉN L 696.1 PSORIASIS 10/24/2011 FLORES LIGHT BULB TESTERANDREW Ambrose 461.9 SINUSITIS ACUTE 10/24/2011 FLORES LIGHT BULB TESTERANDREW 477.0 ALLERGIC RHINITIS - POLLEN 10/24/2011 FLORES LIGHT BULB TESTERANDREW J 696.1 PSORIASIS 10/24/2011 RICK DDS, SHAINA D 461.9 SINUSITIS ACUTE 10/24/2011 RICK DDS, SHAINA D 477.0 ALLERGIC RHINITIS - POLLEN 10/24/2011 RICK DDS, SHAINA D 696.1 PSORIASIS 10/24/2011 EATON LIGHT BULB TESTER, BELÉN L 461.9 SINUSITIS ACUTE 10/24/2011 EATON LIGHT BULB TESTER, BELÉN L 477.0 ALLERGIC RHINITIS - POLLEN 10/24/2011 EATON LIGHT BULB TESTER, BELÉN L 696.1 PSORIASIS 10/24/2011 EATON LIGHT BULB TESTER, BELÉN L 461.9 SINUSITIS ACUTE 10/24/2011 EATON LIGHT BULB TESTER, BELÉN L 477.0 ALLERGIC RHINITIS - POLLEN 10/24/2011 EATON LIGHT BULB TESTER, BELÉN L 696.1 PSORIASIS 10/24/2011 RICK DDS, SHAINA D 461.9 SINUSITIS ACUTE 10/24/2011 RICK DDS, SHAINA D 477.0 ALLERGIC RHINITIS - POLLEN 10/24/2011 RICK DDS, SHAINA D 696.1 PSORIASIS 10/24/2011 BACK DO, CHEYANNE K 461.9 SINUSITIS ACUTE 10/24/2011 BACK DO, CHEYANNE K 477.0 ALLERGIC RHINITIS - POLLEN 10/24/2011 BACK DO, CHEYANNE K 696.1 PSORIASIS 10/24/2011 EATON LIGHT BULB TESTER, BELÉN L 461.9 SINUSITIS ACUTE 10/24/2011 EATON LIGHT BULB TESTER, BELÉN L 477.0 ALLERGIC RHINITIS - POLLEN 10/24/2011 EATON LIGHT BULB TESTER, BELÉN L 696.1 PSORIASIS 10/24/2011 BACK DO, CHEYANNE K 461.9 SINUSITIS ACUTE 10/24/2011 BACK DO, CHEYANNE K 477.0 ALLERGIC RHINITIS - POLLEN 10/24/2011 BACK DO, CHEYANNE K 696.1 PSORIASIS 10/24/2011 ANABELA LUI MD 461.9 SINUSITIS ACUTE 10/24/2011 HU SAMPSON, ANABELA Estrada 477.0 ALLERGIC RHINITIS - POLLEN 10/24/2011 ANABELA LUI MD 696.1 PSORIASIS 10/24/2011 BACK DO, CHEYANNE K 461.9 SINUSITIS ACUTE 10/24/2011 BACK DO, CHEYANNE K 477.0 ALLERGIC RHINITIS - POLLEN 10/24/2011 BACK DO, CHEYANNE K 696.1 PSORIASIS 02/06/2012 Ot 623.8 NONINFLAM DIS VAGINA NEC 02/06/2012 Ot V45.89 POSTSURGICAL STATES NEC 02/26/2012 530.81 GERD 02/26/2012 700 CALLUS/CORN 02/26/2012 NORM DDSENAON F 530.81 GERD 02/26/2012 NORM DDS, VI F 700 CALLUS/CORN 02/26/2012 BELÉN TOVAR APRN 530.81 GERD 02/26/2012 BELÉN TOVAR APRN 700 CALLUS/CORN 02/26/2012 530.81 ESOPHAGEAL REFLUX 02/26/2012 700 CALLUS/CORN 02/26/2012 530.81 ESOPHAGEAL REFLUX 02/26/2012 700 CALLUS/CORN 02/26/2012 530.81 ESOPHAGEAL REFLUX 02/26/2012 700 CALLUS/CORN 02/26/2012 530.81 GERD 02/26/2012 700 CALLUS/CORN 02/26/2012 LENNOX VINES APRNA S 530.81 ESOPHAGEAL REFLUX 02/26/2012 JERMAINE VINES APRNNDA S 700 CALLUS/CORN 02/26/2012 BACK DO, CHEYANNE K 530.81 ESOPHAGEAL REFLUX 02/26/2012 BACK DO, CHEYANNE K 700 CALLUS/CORN 02/26/2012 BACK DO, CHEYANNE K 530.81 ESOPHAGEAL REFLUX 02/26/2012 BACK DO, CHEYANNE K 700 CALLUS/CORN 02/26/2012 MOSES ABRAHAM APRN N 530.81 ESOPHAGEAL REFLUX 02/26/2012 RENEE ABRAHAM APRNCY N 700 CALLUS/CORN 02/26/2012 BACK DO, CHEYANNE K 530.81 ESOPHAGEAL REFLUX 02/26/2012 BACK DO, CHEYANNE K 700 CALLUS/CORN 02/26/2012 BACK DO, CHEYANNE K 530.81 ESOPHAGEAL REFLUX 02/26/2012 BACK DO, CHEYANNE K 700 CALLUS/CORN 02/26/2012 EATON LIGHT BULB TESTER, BELÉN L 530.81 ESOPHAGEAL REFLUX 02/26/2012 EATON LIGHT BULB TESTER, BELÉN L 700 CALLUS/CORN 02/26/2012 FLORES LIGHT BULB TESTERANDREW Ambrose 530.81 ESOPHAGEAL REFLUX 02/26/2012 FLORES LIGHT BULB TESTERANDREW 700 CALLUS/CORN 02/26/2012 RICK DDS, SHAINA D 530.81 ESOPHAGEAL REFLUX 02/26/2012 RICK DDS, SHAINA D 700 CALLUS/CORN 02/26/2012 EATON LIGHT BULB TESTER, BELÉN L 530.81 ESOPHAGEAL REFLUX 02/26/2012 EATON LIGHT BULB TESTER, BELÉN L 700 CALLUS/CORN 02/26/2012 EATON LIGHT BULB TESTER, BELÉN L 530.81 ESOPHAGEAL REFLUX 02/26/2012 EATON LIGHT BULB TESTER, BELÉN L 700 CALLUS/CORN 02/26/2012 RICK DDS, SHAINA D 530.81 ESOPHAGEAL REFLUX 02/26/2012 RICK DDS, SHAINA D 700 CALLUS/CORN 02/26/2012 BACK DO, CHEYANNE K 530.81 ESOPHAGEAL REFLUX 02/26/2012 BACK DO, CHEYANNE K 700 CALLUS/CORN 02/26/2012 EATON LIGHT BULB TESTER, BELÉN L 530.81 ESOPHAGEAL REFLUX 02/26/2012 EATON LIGHT BULB TESTER, BELÉN L 700 CALLUS/CORN 02/26/2012 BACK DO, CHEYANNE K 530.81 ESOPHAGEAL REFLUX 02/26/2012 BACK DO, CHEYANNE K 700 CALLUS/CORN 02/26/2012 ANABELA LUI MD 530.81 ESOPHAGEAL REFLUX 02/26/2012 ANABELA LUI MD 700 CALLUS/CORN 02/26/2012 BACK DO, CHEYANNE K 530.81 ESOPHAGEAL REFLUX 02/26/2012 BACK DO, CHEYANNE K 700 CALLUS/CORN 04/14/2012 Ot 840.9 SPRAIN SHOULDER/ARM NOS 04/14/2012 Ot 959.2 SHLDR/UPPER ARM INJ NOS 04/14/2012 Ot E000.8 OTHER EXTERNAL CAUSE STATUS 04/14/2012 Ot E849.0 ACCIDENT IN HOME 04/14/2012 Ot E884.4 FALL FROM BED 07/14/2012 Ot 789.01 ABDOMINAL PAIN, RIGHT UPPER QUADRANT 08/20/2012 GUY DAVISNYARONBELÉN L 305.1 NICOTINE DEPENDENCE 08/20/2012 GUY DAVISArnol BELÉN L 338.29 CHRONIC PAIN 08/20/2012 GUY DAVISNBELÉN L V65.42 TOBACCO COUNSELING 08/20/2012 305.1 NICOTINE DEPENDENCE 08/20/2012 338.29 CHRONIC PAIN 08/20/2012 V65.42 TOBACCO COUNSELING 08/20/2012 305.1 NICOTINE DEPENDENCE 08/20/2012 338.29 CHRONIC PAIN 08/20/2012 V65.42 TOBACCO COUNSELING 08/20/2012 305.1 NICOTINE DEPENDENCE 08/20/2012 338.29 CHRONIC PAIN 08/20/2012 V65.42 TOBACCO COUNSELING 08/20/2012 MOHINDER ENCISO JUS S 305.1 NICOTINE DEPENDENCE 08/20/2012 MOHINDER ENCISO JUS S 338.29 CHRONIC PAIN 08/20/2012 MOHINDER ENCISO JUS S V65.42 TOBACCO COUNSELING 08/20/2012 BACK DO, CHEYANNE K 305.1 NICOTINE DEPENDENCE 08/20/2012 BACK DO, CHEYANNE K 338.29 CHRONIC PAIN 08/20/2012 BACK DO, CHEYANNE K V65.42 TOBACCO COUNSELING 08/20/2012 BACK DO, CHEYANNE K 305.1 NICOTINE DEPENDENCE 08/20/2012 BACK DO, CHEYANNE K 338.29 CHRONIC PAIN 08/20/2012 BACK DO, CHEYANNE K V65.42 TOBACCO COUNSELING 08/20/2012 RENEE ABRAHAM APRNCY N 305.1 NICOTINE DEPENDENCE 08/20/2012 RENEE ABRAHAM APRNCY N 338.29 CHRONIC PAIN 08/20/2012 SILVIANO MEAD APRN MOSES N V65.42 TOBACCO COUNSELING 08/20/2012 BACK DO, CHEYANNE K 305.1 NICOTINE DEPENDENCE 08/20/2012 BACK DO, CHEYANNE K 338.29 CHRONIC PAIN 08/20/2012 BACK DO, CHEYANNE K V65.42 TOBACCO COUNSELING 08/20/2012 BACK DO, CHEYANNE K 305.1 current smoker 08/20/2012 BACK DO, CHEYANNE K 338.29 CHRONIC PAIN 08/20/2012 BACK DO, CHEYANNE K V65.42 TOBACCO COUNSELING 08/20/2012 BELÉN TOVAR APRN L 305.1 current smoker 08/20/2012 GUY DAVISArnol BELÉN L 338.29 CHRONIC PAIN 08/20/2012 GUY DAVISArnol BELÉN L V65.42 TOBACCO COUNSELING 08/20/2012 SANDRA ANDREW ENCISO 305.1 current smoker 08/20/2012 SANDRA ANDREW ENCISO 338.29 CHRONIC PAIN 08/20/2012 SANDRA DAVISANDREW Ambrose V65.42 TOBACCO COUNSELING 08/20/2012 SHAINA CABRERA DDS 305.1 current smoker 08/20/2012 SHAINA CABRERA DDS 338.29 CHRONIC PAIN 08/20/2012 SHAINA CABRERA DDS V65.42 TOBACCO COUNSELING 08/20/2012 GUY DAVISArnol BELÉN L 305.1 current smoker 08/20/2012 GUY DAVISArnol BELÉN L 338.29 CHRONIC PAIN 08/20/2012 GUY DAVISArnol BELÉN L V65.42 TOBACCO COUNSELING 08/20/2012 GUY DAVISArnol BELÉN L 305.1 current smoker 08/20/2012 GUY DAVISArnol BELÉN L 338.29 CHRONIC PAIN 08/20/2012 GUY DAVISArnol BELÉN L V65.42 TOBACCO COUNSELING 08/20/2012 SHAINA CABRERA DDS D 305.1 current smoker 08/20/2012 SHAINA CABRERA DDS D 338.29 CHRONIC PAIN 08/20/2012 SHAINA CABRERA DDS D V65.42 TOBACCO COUNSELING 08/20/2012 BACK DO, CHEYANNE K 305.1 current smoker 08/20/2012 BACK DO, CHEYANNE K 338.29 CHRONIC PAIN 08/20/2012 BACK DO, CHEYANNE K V65.42 TOBACCO COUNSELING 08/20/2012 GUY DAVISArnol BELÉN L 305.1 current smoker 08/20/2012 EATHE DAVISN, BELÉN L 338.29 CHRONIC PAIN 08/20/2012 EATHE DAVISArnol BELÉN L V65.42 TOBACCO COUNSELING 08/20/2012 BACK DO, CHEYANNE K 305.1 current smoker 08/20/2012 BACK DO, CHEYANNE K 338.29 CHRONIC PAIN 08/20/2012 BACK DO, CHEYANNE K V65.42 TOBACCO COUNSELING 08/20/2012 HU SAMPSON, ANABELA Estrada 305.1 current smoker 08/20/2012 ANABELA ULI MD 338.29 CHRONIC PAIN 08/20/2012 HU SAMPSON, ANABELA Estrada V65.42 TOBACCO COUNSELING 08/20/2012 BACK DO, CHEYANNE K 305.1 current smoker 08/20/2012 BACK DO, CHEYANNE K 338.29 CHRONIC PAIN 08/20/2012 BACK DO, CHEYANNE K V65.42 TOBACCO COUNSELING 10/24/2012 303.90 ALCOHOLISM 10/24/2012 696.0 PSORIATIC ARTHROPATHY 10/24/2012 MOHINDER ENCISO, JUS S 303.90 ALCOHOLISM 10/24/2012 MOHINDER LIGHT BULB TESTER, JUS S 696.0 PSORIATIC ARTHROPATHY 10/24/2012 BACK DO, CHEYANNE K 303.90 ALCOHOLISM 10/24/2012 BACK DO, CHEYANNE K 696.0 PSORIATIC ARTHROPATHY 10/24/2012 BACK DO, CHEYANNE K 303.90 ALCOHOLISM 10/24/2012 BACK DO, CHEYANNE K 696.0 PSORIATIC ARTHROPATHY 10/24/2012 SILVIANO MEAD APRN, MOSES N 303.90 ALCOHOLISM 10/24/2012 SILVIANO MEAD APRN MOSES N 696.0 PSORIATIC ARTHROPATHY 10/24/2012 BACK DO, CHEYANNE K 303.90 ALCOHOLISM 10/24/2012 BACK DO, CHEYANNE K 696.0 PSORIATIC ARTHROPATHY 10/24/2012 BACK DO, CHEYANNE K 303.90 ALCOHOLISM 10/24/2012 BACK DO, CHEYANNE K 696.0 PSORIATIC ARTHROPATHY 10/24/2012 EATHE LIGHT BULB TESTER, BELÉN L 303.90 ALCOHOLISM 10/24/2012 EATON LIGHT BULB TESTER, BELÉN L 696.0 PSORIATIC ARTHROPATHY 10/24/2012 ANDREW FLORES APRN 303.90 ALCOHOLISM 10/24/2012 ANDREW FLORES APRN 696.0 PSORIATIC ARTHROPATHY 10/24/2012 SHAINA CABRERA DDS 303.90 ALCOHOLISM 10/24/2012 SHAINA CABRERA DDS 696.0 PSORIATIC ARTHROPATHY 10/24/2012 EATON LIGHT BULB TESTER, BELÉN L 303.90 ALCOHOLISM 10/24/2012 EATON LIGHT BULB TESTER, BELÉN L 696.0 PSORIATIC ARTHROPATHY 10/24/2012 EATON LIGHT BULB TESTER, BELÉN L 303.90 ALCOHOLISM 10/24/2012 EATON LIGHT BULB TESTER, BELÉN L 696.0 PSORIATIC ARTHROPATHY 10/24/2012 RICK DDS, SHAINA D 303.90 ALCOHOLISM 10/24/2012 RICK DDS, SHAINA D 696.0 PSORIATIC ARTHROPATHY 10/24/2012 BACK DO, CHEYANNE K 303.90 ALCOHOLISM 10/24/2012 BACK DO, CHEYANNE K 696.0 PSORIATIC ARTHROPATHY 10/24/2012 EATBELÉN CUTLER APRN 303.90 ALCOHOLISM 10/24/2012 EATON LIGHT BULB TESTERBELÉN Ambrose L 696.0 PSORIATIC ARTHROPATHY 10/24/2012 BACK DO, CHEYANNE K 303.90 ALCOHOLISM 10/24/2012 BACK DO, CHEYANNE K 696.0 PSORIATIC ARTHROPATHY 10/24/2012 HU SAMPSON, ANABELA A 303.90 ALCOHOLISM 10/24/2012 HU SAMPSON, ANABELA Estrada 696.0 PSORIATIC ARTHROPATHY 10/24/2012 BACK DO, CHEYANNE K 303.90 ALCOHOLISM 10/24/2012 BACK DO, CHEYANNE K 696.0 PSORIATIC ARTHROPATHY 12/18/2012 JUS VINES APRN S 380.10 INFECTIVE OTITIS EXTERNA UNSPECIFIED 12/18/2012 JUS VINES APRN S 381.02 ACUTE MUCOID OTITIS MEDIA 12/18/2012 BACK DO, CHEYANNE K 380.10 INFECTIVE OTITIS EXTERNA UNSPECIFIED 12/18/2012 BACK DO, CHEYANNE K 381.02 ACUTE MUCOID OTITIS MEDIA 12/18/2012 BACK DO, CHEYANNE K 380.10 INFECTIVE OTITIS EXTERNA UNSPECIFIED 12/18/2012 BACK DO, CHEYANNE K 381.02 ACUTE MUCOID OTITIS MEDIA 12/18/2012 MOSES ABRAHAM APRN N 380.10 INFECTIVE OTITIS EXTERNA UNSPECIFIED 12/18/2012 MOSES ABRAHAM APRN N 381.02 ACUTE MUCOID OTITIS MEDIA 12/18/2012 BACK DO, CHEYANNE K 380.10 INFECTIVE OTITIS EXTERNA UNSPECIFIED 12/18/2012 BACK DO, CHEYANNE K 381.02 ACUTE MUCOID OTITIS MEDIA 12/18/2012 BACK DO, CHEYANNE K 380.10 INFECTIVE OTITIS EXTERNA UNSPECIFIED 12/18/2012 BACK DO, CHEYANNE K 381.02 ACUTE MUCOID OTITIS MEDIA 12/18/2012 EATBELÉN CUTLER APRN L 380.10 INFECTIVE OTITIS EXTERNA UNSPECIFIED 12/18/2012 EATON BELÉN ENCISO L 381.02 ACUTE MUCOID OTITIS MEDIA 12/18/2012 ANDREW FLORES APRN 380.10 INFECTIVE OTITIS EXTERNA UNSPECIFIED 12/18/2012 ANDREW FLORES APRN 381.02 ACUTE MUCOID OTITIS MEDIA 12/18/2012 RICK DDS, SHAINA Pretty 380.10 INFECTIVE OTITIS EXTERNA UNSPECIFIED 12/18/2012 RICK DDS, SHAINA Pretty 381.02 ACUTE MUCOID OTITIS MEDIA 12/18/2012 EATON LIGHT BULB TESTER, BELÉN L 380.10 INFECTIVE OTITIS EXTERNA UNSPECIFIED 12/18/2012 EATON LIGHT BULB TESTER, BELÉN L 381.02 ACUTE MUCOID OTITIS MEDIA 12/18/2012 EATON LIGHT BULB TESTER, BELÉN L 380.10 INFECTIVE OTITIS EXTERNA UNSPECIFIED 12/18/2012 EATON LIGHT BULB TESTER, BELÉN L 381.02 ACUTE MUCOID OTITIS MEDIA 12/18/2012 RICK DDS, SHAINA Pretty 380.10 INFECTIVE OTITIS EXTERNA UNSPECIFIED 12/18/2012 RICK DDS, SHAINA Pretty 381.02 ACUTE MUCOID OTITIS MEDIA 12/18/2012 BACK DO, CHEYANNE K 380.10 INFECTIVE OTITIS EXTERNA UNSPECIFIED 12/18/2012 BACK DO, CHEYANNE K 381.02 ACUTE MUCOID OTITIS MEDIA 12/18/2012 EATON LIGHT BULB TESTER, BELÉN L 380.10 INFECTIVE OTITIS EXTERNA UNSPECIFIED 12/18/2012 EATON LIGHT BULB TESTER, BELÉN L 381.02 ACUTE MUCOID OTITIS MEDIA 12/18/2012 BACK DO, CHEYANNE K 380.10 INFECTIVE OTITIS EXTERNA UNSPECIFIED 12/18/2012 BACK DO, CHEYANNE K 381.02 ACUTE MUCOID OTITIS MEDIA 12/18/2012 ANABELA LUI MD 380.10 INFECTIVE OTITIS EXTERNA UNSPECIFIED 12/18/2012 ANABELA LUI MD 381.02 ACUTE MUCOID OTITIS MEDIA 12/18/2012 ABCK DO, CHEYANNE K 380.10 INFECTIVE OTITIS EXTERNA UNSPECIFIED 12/18/2012 BACK DO, CHEYANNE K 381.02 ACUTE MUCOID OTITIS MEDIA 02/11/2013 JERMAINE VINES APRNNDA S 372.30 CONJUNCTIVITIS UNSPECIFIED 02/11/2013 JUS VINES APRN S 698.9 PRURITUS NOS 02/11/2013 JERMAINE VINES APRNNDA S 782.7 petichiae 02/11/2013 BACK DO, CHEYANNE K 372.30 CONJUNCTIVITIS UNSPECIFIED 02/11/2013 BACK DO, CHEYANNE K 698.9 PRURITUS NOS 02/11/2013 BACK DO, CHEYANNE K 782.7 petichiae 02/11/2013 BACK DO, CHEYANNE K 372.30 CONJUNCTIVITIS UNSPECIFIED 02/11/2013 BACK DO, CHEYANNE K 698.9 PRURITUS NOS 02/11/2013 BACK DO, CHEYANNE K 782.7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
[2018-01-29 06:30] VITALS: BP 122/76
[2018-01-29] MEDS ORDERED: ONDANSETRON 4 MG/2 ML (SDV) Z0FRAN IV ONE (06:45)
[2018-01-29] MEDS ORDERED: SCOPOLAMINE 1.5 MG (TRANSDERM-SCOP) PATCH TOP ONE (06:45)
[2018-01-29] MEDS ORDERED: FAMOTIDINE 20MG/2ML IV (PEPCID) IV ONE (06:45)
[2018-01-29] MEDS ORDERED: LACTATED RINGERS 1,000 ML IV ONE (06:47)
[2018-01-29] MEDS ORDERED: LIDOCAINE PF 2% 5 ML (XYLOCAINE) VIAL ONE (06:47)
[2018-01-29] MEDS ORDERED: ROCURONIUM 10 MG/ML 5 ML SYRINGE IV ONE (06:47)
[2018-01-29] MEDS ORDERED: SEVOFLURANE (ULTANE) 15 ML INHAL SOLN ONE ×4 (06:47→09:40)
[2018-01-29] MEDS ORDERED: proPOfol 200 MG/20 ML (DIPRIVAN) VIAL IV ONE (06:47)
[2018-01-29] MEDS ORDERED: MIDAZOLAM 2 MG/2 ML (VERSED) VIAL ONE (06:48)
[2018-01-29] MEDS ORDERED: fentaNYL INJECTION 100 MCG/2 ML AMP ONE ×2 (06:48→09:19)
[2018-01-29] MEDS ORDERED: metroNIDAZOLE 500MG/100ML IVPB 100 ML ONE (06:55)
[2018-01-29] MEDS ORDERED: ceFAZolin 1,000 MG/10 ML (ANCEF) VIAL ONE (06:55)
[2018-01-29] MEDS ORDERED: NS (IVPB) 50 ML ONE (06:55)
[2018-01-29] MEDS: LACTATED RINGERS 1,000 ML IV PRN ×2 (06:55→07:35)
[2018-01-29] MEDS ORDERED: ceFAZolin INJECTION 1,000 MG in NS (IVPB) 50 ML IV ONE (07:00)
[2018-01-29] MEDS ORDERED: metroNIDAZOLE 500MG/100ML IVPB 100 ML IV ONE (07:00)
[2018-01-29] MEDS ORDERED: CATHETER FLUSH 10 ML SYR IV PRN (07:00)
[2018-01-29] MEDS ORDERED: BUP/EPI 0.5% 1:200,000 (SENSORCAINE) 30 ML VIAL ONE (07:19)
--- NOTE | 2018-01-29 07:41 | Progress Note-Pre Operative ---
Pre-Operative Progress Note H&P Reviewed The H&P was reviewed, patient examined and no changes noted. Date Seen by Provider: Jan 29, 2018 Time Seen by Provider: 07:30 Date H&P Reviewed: Jan 29, 2018 Time H&P Reviewed: 07:30 Pre-Operative Diagnosis: menorrhagia, dysmenorrhea, vulvar lesions, history of condyloma and JENNA ROSA ISELA SIMPSON DO Jan 29, 2018 07:41
[2018-01-29] MEDS ORDERED: SILVER SULFADIAZINE 50 GM CREAM ONE (09:16)
[2018-01-29] MEDS ORDERED: GLYCOPYRROLATE 0.2 MG/ML (ROBINUL) 2 ML VIAL ONE (09:23)
[2018-01-29] MEDS ORDERED: NEOSTIGMINE 1 MG/ML 5 ML SYRINGE ONE (09:23)
[2018-01-29] MEDS ORDERED: KETOROLAC 30 MG/ML VIAL ONE (09:41)
[2018-01-29] MEDS ORDERED: HYDROmorphone 2 MG/ML VIAL (DILAUDID) ONE (09:55)
[2018-01-29] MEDS ORDERED: PROMETHAZINE INJ 25 MG/ML (PHENERGAN) AMP ONE (10:05)
--- NOTE | 2018-01-29 10:08 | Anesthesia-General Post-Op ---
General Patient Condition Mental Status/LOC: Same as Preop Cardiovascular: Satisfactory Nausea/Vomiting: Absent Respiratory: Satisfactory Pain: Controlled Complications: Absent Post Op Complications Complications None Follow Up Care/Instructions Patient Instructions None needed. Anesthesia/Patient Condition Patient Condition Patient is doing well, no complaints, stable vital signs, no apparent adverse anesthesia problems. No complications reported per nursing. TONY GUIDRY CRNA Jan 29, 2018 10:08
[2018-01-29] MEDS ORDERED: MEPERIDINE (DEMEROL) INJ 50 MG/ML IVP ONE (10:15)
[2018-01-29] MEDS ORDERED: morphine INJ 10 MG/ML 1ML (SYR OR VIAL) IVP ONE (10:15)
[2018-01-29] MEDS ORDERED: PROMETHAZINE INJ 25 MG/ML (PHENERGAN) AMP IVP ONE (10:15)
[2018-01-29] MEDS ORDERED: fentaNYL INJECTION 100 MCG/2 ML AMP IVP ONE (10:15)
[2018-01-29] MEDS ORDERED: KETOROLAC 30 MG/ML VIAL IVP PRN (10:15)
[2018-01-29] MEDS ORDERED: HYDROmorphone 2 MG/ML VIAL (DILAUDID) IV ONE (10:15)
[2018-01-29 11:47] VITALS: BP 128/80
[2018-01-29] MEDS ORDERED: HYDROmorphone 1 MG/ML (DILAUDID) 1 ML SYRINGE IV PRN (12:45)
[2018-01-29] MEDS ORDERED: CHLORASEPTIC LOZENGE MM PRN (12:45)
[2018-01-29] MEDS: D5 LR IV SOLUTION 1,000 ML IV SCH ×2 (12:52→19:42)
[2018-01-29] MEDS: SIMETHICONE 80 MG (MYLICON) CHEW PO PRN ×2 (12:58→22:13)
[2018-01-29] MEDS ORDERED: HYDROmorphone 2 MG/ML VIAL (DILAUDID) IV PRN (13:00)
[2018-01-29] MEDS: HYDROcodone/APAP 7.5 MG/325 MG (LORTAB, LORCET PLUS) TABLET PO PRN ×2 (13:49→19:41)
[2018-01-29 15:28] VITALS: BP 120/80
[2018-01-29] MEDS: KETOROLAC 30 MG/ML VIAL IVP PRN ×2 (16:50→22:13)
[2018-01-29] MEDS: DOCUSATE SODIUM 100 MG (COLACE) CAP PO SCH (19:41)
[2018-01-29 19:45] VITALS: BP 116/73
[2018-01-29] MEDS ORDERED: CALCIUM CARBONATE 500 MG (TUMS) TAB.CHEW ONE (23:57)
[2018-01-30] VITALS: BP 91/52
[2018-01-30] MEDS ORDERED: CALCIUM CARBONATE 500 MG (TUMS) TAB.CHEW PO ONE (00:15)
[2018-01-30] MEDS: HYDROcodone/APAP 7.5 MG/325 MG (LORTAB, LORCET PLUS) TABLET PO PRN (01:20)
[2018-01-30 04:00] VITALS: BP 100/68
[2018-01-30] MEDS: KETOROLAC 30 MG/ML VIAL IVP PRN (04:13)
[2018-01-30] MEDS ORDERED: PANTOPRAZOLE 40 MG (PROTONIX) TAB PO ONE (04:15)
[2018-01-30] MEDS ORDERED: ANTACID SUSP 30 ML UDC (MYLANTA) PO ONE (04:15)
[2018-01-30] MEDS ORDERED: IBUP-844 PO (08:12)
[2018-01-30] MEDS ORDERED: DOCU100C37 PO (08:12)
[2018-01-30] MEDS ORDERED: HYDR-34 PO (08:12)
[2018-01-30] MEDS ORDERED: PROMETHAZINE INJ 25 MG/ML (PHENERGAN) AMP IVP NR (08:15)
--- NOTE | 2018-01-30 08:15 | Physician Progress Note ---
Progress Note Assessment/Plan Date Seen by Provider: Jan 30, 2018 Time Seen by Provider: 08:00 Events since last exam restarted protonix due to reflux, given promethazine for nasuea associated with pain medicaitons. Has voided and ambulated 01/30/18 01/30/18 00:00 04:00 Temp 98.5 99.1 Pulse 54 72 Resp 18 18 B/P (MAP) 91/52 (65) 100/68 (79) Pulse Ox 97 95 O2 Delivery Room Air Room Air 01/30/18 00:00 Intake Total 2620 ml Output Total 1275 ml Balance 1345 ml abdomen soft and non tender Plan dc home today Assessment/Plan POD #1 DC home Vitals Last set of Vitals Signs Vital Signs Date Time Temp Pulse Resp B/P (MAP) Pulse Ox O2 Delivery O2 Flow Rate FiO2 01/30/18 04:00 99.1 72 18 100/68 (79) 95 Room Air I&O I&O Intake and Output 01/30/18 00:00 Intake Total 4770 ml Output Total 1600 ml Balance 3170 ml Intake Oral 1620 ml IV Total 3150 ml Output Urine Total 1600 ml ROSA ISELA SIMPSON DO Jan 30, 2018 08:15
--- NOTE | 2018-01-30 08:17 | Discharge Inst-Women's Service ---
Discharge Inst-Women's Serv Depart Medication/Instructions New, Converted or Re-Newed RX: RX on Chart Instructions nothing in the vagina until 12 week follow up Final Diagnosis cervical dysplasia menorrhagia dysmenorrhea Consults/Follow Up Additional Follow Up: Yes (1 week with Ashley for postop exam. 10-12 weeks with Slade for post op exam. ) Activity Activity: Activity as Tolerated Driving Instructions: No Driving for 1 Week NO SMOKING: NO SMOKING Nothing Inside Vagina: No Douching, No [employer], No Tampons Diet Discharge Diet: No Restrictions Symptoms to Report to : Bleeding Excessive, Pain Increased, Fever Over 101 Degrees F, Vaginal Bleeding Increase, Cramps in Feet or Legs, Vaginal Discharge Foul For Any Problems or Questions: Contact Your Physician Skin/Wound Care Infection Signs and Symptoms: Increased Redness, Foul Odor of Wound, Increased Drainage, Skin Itchy or Has a Rash, Increased Swelling, Temperature Above 101 F Operative Area Clean and Dry: You May Remove Bandage (removed bandages on day 3 postop unless soiled or wet) Stitches/[place]/Dermabond: Dermabond Bathing Instructions: ROSA ISELA Ray DO Jan 30, 2018 08:17
[2018-01-30] MEDS ORDERED: IBUPROFEN 600 MG (MOTRIN) TAB PO ONE (08:18)
[2018-01-30] MEDS ORDERED: SIME80TA16 PO (08:19)
[2018-01-30 08:20] VITALS: BP 114/78
[2018-01-30] MEDS: DOCUSATE SODIUM 100 MG (COLACE) CAP PO SCH (08:25)
[2018-01-30] MEDS ORDERED: PATCH REMOVAL TP SCH (08:59)
[2018-01-30] MEDS ORDERED: NICOTINE 21 MG (NICODERM) PATCH TD SCH (09:00)
[2018-01-30] MEDS ORDERED: IBUPROFEN 600 MG (MOTRIN) TAB PO SCH (12:00)
--- NOTE | 2018-02-20 15:19 | Operative Report ---
Operative Report Date of Procedure/Surgery Jan 29, 2018 Surgeon (s) ROSA ISELA SIMPSON DO Search Specialist (s): Ashley Prajapati, BOMB TECHNICIAN; Yoav Kang, MS III Post-Operative Diagnosis Menorrhagia, dysmenorrhea, cervical dysplasia, vulvar lesions (history of condyloma) Procedure Performed RaTH, bilateral salpingectomy, lysis of adhesions, excision and fulgeration of vulvar lesions Description of Procedure Anesthesia Type: General Estimated blood loss (mL): minimal Specimen(s) collected/removed uterus, bilateral tubs, vulvar lesion Description of the Procedure Meditech went down during the case, so the operative note was initially done on a progress note, but it was not scanned in. This is a late entry operative note. The procedure was done and the report initially done on 01/29/18. After informed consent was obtained, patient was taken into the operating room where general anesthetic was found to be adequate. She was prepped and draped in the usual sterile fashion in the dorsal lithotomy position. A Smith catheter was placed. A speculum was placed in the vagina. The anterior lip was grasped with a sharp toothed tenaculum. The uterus was sounded and depth was approximately 10 centimeters. I placed the Jessie device. And then set the Jessie to 12 cm and a 3.0 cm collar was advanced over the cervix. I inserted the Jessie without difficulty, inflating the balloon and securing it around the fornix of the cervix. The collar was then secured with sutures at 12 o'clock. Attention was then turned to the patient's abdomen. A supraumbilical incision was made about 8 mm. A Veress needle was inserted and I had difficulty confirming intraabdominal placement, but was eventually able to confirm with a drop in pressure and the saline drop test. I then insufflated the abdomen to a maximum of 15 mmHg with warmed CO2 gas. I then placed an 8 mm trocar and then the Da Elio camera and intraperitoneal placement was confirmed. I then determined the procedure could be continued robotically. The first robotic port was placed about 15 cm lateral to the right and left of the umbilical placement and slightly inferior. These are both 8 mm trocars. These were placed under direct visualization of the laparoscope. 0.25% Marcaine was injected prior to placement of all trocars. When all placements were confirmed, the patient was placed in steep Trendelenburg allowing adequate visualization and the robot was brought in for docking. The docking was accomplished without difficulty. A survey of the pelvis confirmed the above mentioned findings. There was evidence of tubal interruption bilaterally. I proceeded with salpingectomy bilaterally but incising the mesosalpinx bilaterally and removing the residual portion of the tubes bilaterally. Then I was able to visualize the round ligaments bilaterally and grasped them and cauterized with bipolar cautery and then cut with my maida. I sealed the vessel and transected bilaterally using the bipolar cautery and then cut with the monopolar maida. I then moved my dissection to the posterior leaves of the broad ligament. I dissected the posterior leaves of the broad ligament off the uterine arteries skeletonizing them bilaterally. I then took a second clamp with the bipolar cautery and with the maida, transected the vessels away from the lateral aspect to the cervical stroma. I dissected the anterior peritoneum off the lower uterine segment. I continually pushed the bladder back and I took excessively great care and I was eventually able to dissect the vesicouterine peritoneum off the lower uterine segment. There was an area of infarcted epiploica that was removed with cautery and sent for pathology. I then dissected in a V fashion towards the midline between the uterosacral ligaments. This allowed me to skeletonize the uterine vessels bilaterally. The balloon on the JESSIE was insufflated. This allowed me to see the JESSIE circumferentially. I then performed a colpotomy anteriorly and then amputate with cervix away from the vaginal fornix. I then continued the colpotomy circumferentially. Once this was performed, the cement tester assistant removed the uterus through the vagina. A sponge was left in the vagina to maintain pneumoperitoneum. I then began closure of the vaginal cuff. I closed the apices of the vaginal cuff with 2-0 Vicryl V lock sutures with a colposuspension through the uterosacral ligaments. This suspended the apices of the vaginal cuff. I extended this to the midline from both sides and overlapped the V lock sutures in the midline. Excellent closure is noted and hemostasis is achieved. All the needles were removed from the patient's abdomen. The fascial incisions were closed with 0-Vicryl and the skin with 4-0 Monocryl in a subcuticular fashion and then [place] was placed. Bandages were placed. Patient was awakened and taken to the recovery room in stable condition. I then removed an enlarged, inflamed vulvar lesion on the left labia majora by excising at the base. I then cauterized 11 separate genital warts 1-3 mm at the base. I then layered Silvadene cream on the vulva. Following the case, instrument counts were correct. The patient was repositioned in the supine position and awakened from general anesthesia without difficulty. She was taken to recovery in stable condition. Ancef and Flagyl were given preoperatively. SCD s used throughout the case. Findings of the Procedure normal appearing tubes, ovaries and uterus. Evidence of tubal interruption bilaterally. Uterus slightly boggy consistent with adenomyosis. Adhesions of the colon and ovary to the left pelvic side wall likely from BTL. 11 warty lesions on the external vulva consistent with genital warts. Previously treated in the office with podophyllin but returned and are worse. Allergies and Home Medications Allergies Coded Allergies: Sulfa (Sulfonamide Antibiotics) (Unverified Allergy, Severe, ANAPHYLAXIS, 01/23/18) Home Medications Docusate Sodium 100 Mg Capsule, 100 MG PO BID PRN for CONSTIPATION-1ST LINE Prescribed by: MAUDE URBAN on 01/30/18 0812 Hydrocodone Bit/Acetaminophen 1 Ea Tablet, 2 EA PO Q6H PRN for PAIN-MODERATE Prescribed by: MAUDE URBAN on 01/30/18 08 Ibuprofen 600 Mg Tablet, 600 MG PO Q6HR Prescribed by: MAUDE URBAN on 01/30/18 08 Omeprazole 40 Mg Capsule.dr, 40 MG PO DAILY, (Reported) Simethicone 80 Mg Tab.chew, 80 MG PO Q2H PRN for GAS Prescribed by: ROSA ISELA SIMPSON on 01/30/18 0819 Patient Home Medication List Home Medication List Reviewed: ROSA ISELA Lindquist DO Feb 20, 2018 15:19
== END 2018-01-30 12:50 | disposition home or self-care (01) ==
LOC: SDC 06:12 → WS 10:50 → SDC 01-30 12:50
PROVIDERS: ATTEND Obstetrics & Gynecology
DX: N92.0 Excessive and frequent menstruation with regular cycle (principal); N80.0 Endometriosis of uterus; N94.6 Dysmenorrhea, unspecified; A63.0 Anogenital (venereal) warts; K21.9 Gastro-esophageal reflux disease without esophagitis; F17.210 Nicotine dependence, cigarettes, uncomplicated; Z87.410 Personal history of cervical dysplasia
CPT/HCPCS: 36415; 84703; 86850; 86900; 86901; 88305; 88307; 88312; 94664

== ENCOUNTER 2020-10-21 11:54 | Emergency (ER) | payer SELFPAY ==
[~2020-10-21] VITALS: Ht 172.7 cm; Wt 87.7 kg
[~2020-10-21 11:54] MED LIST changes: +DOCU100C37 PO; +HYDR-34 PO; +IBUP-844 PO; +OMEP40CA27 PO; +SIME80TA16 PO
--- NOTE | 2020-10-21 12:23 | ED General ---
General Stated Complaint: HTN Source of Information: Patient Exam Limitations: No Limitations History of Present Illness Date Seen by Provider: October 21, 2020 Time Seen by Provider: 12:21 Initial Comments To ER with reports of high blood pressure. She found her blood pressure to be high a few days ago and made an appoint with primary care aMlena Uribe. She was started on metoprolol 25 mg yesterday. Her blood pressure at that time was 140/90. This morning her blood pressure was 150/110 and she had a significant headache that started rather suddenly at about 10:45 AM. She has some photophobia and nausea. She has a little bit of neck discomfort as well. She states that from no pain to maximum intensity headache was duration of just a few minutes. Timing/Duration: 1-2 Days Severity: Moderate Associated Systoms: Headaches, Nausea/Vomiting Allergies and Home Medications Allergies Coded Allergies: Sulfa (Sulfonamide Antibiotics) (Unverified Allergy, Severe, ANAPHYLAXIS, 01/23/18) Home Medications Docusate Sodium 100 Mg Capsule, 100 MG PO BID PRN for CONSTIPATION-1ST LINE Prescribed by: MAUDE URBAN on 01/30/18 08 Hydrocodone Bit/Acetaminophen 1 Ea Tablet, 2 EA PO Q6H PRN for PAIN-MODERATE Prescribed by: MAUDE URBAN on 01/30/18 08 Ibuprofen 600 Mg Tablet, 600 MG PO Q6HR Prescribed by: MAUDE URBAN on 01/30/18 08 Omeprazole 40 Mg Capsule.dr, 40 MG PO DAILY, (Reported) Simethicone 80 Mg Tab.chew, 80 MG PO Q2H PRN for GAS Prescribed by: ROSA ISELA SIMPSON on 01/30/18 0819 Patient Home Medication List Home Medication List Reviewed: Yes Review of Systems Review of Systems Constitutional: see HPI EENTM: see HPI Respiratory: no symptoms reported Cardiovascular: no symptoms reported Genitourinary: no symptoms reported Musculoskeletal: no symptoms reported Skin: no symptoms reported Psychiatric/Neurological: See HPI, Headache Hematologic/Lymphatic: No Symptoms Reported Past Wdvnopg-Rheaqk-Ghvdzt Hx Patient Social History Type Used: Cigarettes Recent Hopitalizations: No Seasonal Allergies Seasonal Allergies: No Past Medical History Gallbladder, Tubal Ligation Reproductive Disorders: Yes (MENOMRTRORRHAGIA, RECALCITRANT DYSMENORRHEA) LINUX UNIX ADMINISTRATOR History: Tubal Ligation Sexually Transmitted Disease: No Gastroesophageal Reflux, Chronic Diarrhea Arthritis Loss of Vision: Bilateral Hearing Impairment: Denies Anxiety, Depression Psoriasis Adverse Reaction/Blood Tranf: No (N/A) Physical Exam Vital Signs Vital Signs - First Documented 10/21/20 12:13 Temp 36.1 Pulse 71 Resp 18 B/P (MAP) 157/109 (125) Pulse Ox 97 Capillary Refill : Height, Weight, BMI Height: 5'8.00" Weight: 171lbs. 1.0oz. 77.283489ro; 26.0 BMI Method:Stated General Appearance: No Apparent Distress, WD/WN Eyes: Bilateral Eye Normal Inspection, Bilateral Eye PERRL, Bilateral Eye EOMI HEENT: PERRL/EOMI, TMs Normal Neck: Full Range of Motion, Normal Inspection Respiratory: No Accessory Muscle Use, No Respiratory Distress Cardiovascular: Regular Rate, Rhythm, Normal Peripheral Pulses Gastrointestinal: Non Tender, Soft Extremity: Normal Capillary Refill, Normal Inspection Neurologic/Psychiatric: Alert, Oriented x3 Skin: Normal Color, Warm/Dry Progress/Results/Core Measures Suspected Sepsis SIRS Temperature: Pulse: Respiratory Rate: Laboratory Tests 10/21/20 12:29: White Blood Count 6.8 Blood Pressure / Mean: Laboratory Tests 10/21/20 12:29: Creatinine 0.78, Platelet Count 87L, Total Bilirubin 0.5 Results/Orders Lab Results Laboratory Tests Test 10/21/20 12:29 Range/Units White Blood Count 6.8 4.3-11.0 10^3/uL Red Blood Count 4.61 3.80-5.11 10^6/uL Hemoglobin 14.6 11.5-16.0 g/dL Hematocrit 45 35-52 % Mean Corpuscular Volume 97 80-99 fL Mean Corpuscular Hemoglobin 32 25-34 pg Mean Corpuscular Hemoglobin Concent 33 32-36 g/dL Red Cell Distribution Width 12.9 10.0-14.5 % Platelet Count 87 L 130-400 10^3/uL Mean Platelet Volume 12.4 H 9.0-12.2 fL Immature Granulocyte % (Auto) 0 % Neutrophils (%) (Auto) 61 42-75 % Lymphocytes (%) (Auto) 30 12-44 % Monocytes (%) (Auto) 6 0-12 % Eosinophils (%) (Auto) 2 0-10 % Basophils (%) (Auto) 0 0-10 % Neutrophils # (Auto) 4.2 1.8-7.8 10^3/uL Lymphocytes # (Auto) 2.0 1.0-4.0 10^3/uL Monocytes # (Auto) 0.4 0.0-1.0 10^3/uL Eosinophils # (Auto) 0.2 0.0-0.3 10^3/uL Basophils # (Auto) 0.0 0.0-0.1 10^3/uL Immature Granulocyte # (Auto) 0.0 0.0-0.1 10^3/uL Percent Immature Platelet Fraction 16.5 H 0.0-7.6 % Sodium Level 138 135-145 MMOL/L Potassium Level 4.5 3.6-5.0 MMOL/L Chloride Level 106 98-107 MMOL/L Carbon Dioxide Level 22 21-32 MMOL/L Anion Gap 10 5-14 MMOL/L Blood Urea Nitrogen 7 7-18 MG/DL Creatinine 0.78 0.60-1.30 MG/DL Estimat Glomerular Filtration Rate > 60 BUN/Creatinine Ratio 9 Glucose Level 93 70-105 MG/DL Calcium Level 9.3 8.5-10.1 MG/DL Corrected Calcium 9.3 8.5-10.1 MG/DL Total Bilirubin 0.5 0.1-1.0 MG/DL Aspartate Amino Transf (AST/SGOT) 45 H 5-34 U/L Alanine Aminotransferase (ALT/SGPT) 46 0-55 U/L Alkaline Phosphatase 69 40-136 U/L C-Reactive Protein High Sensitivity 0.45 0.00-0.50 MG/DL Total Protein 7.3 6.4-8.2 GM/DL Albumin 4.0 3.2-4.5 GM/DL My Orders Orders - LEXX ENCISO APRN Ct Head Wo (10/21/20 12:18) Cbc With Automated Diff (10/21/20 12:18) Comprehensive Metabolic Panel (10/21/20 12:18) Ekg Tracing (10/21/20 12:18) Chest 1 View, Ap/Pa Only (10/21/20 12:18) Ed Iv/Invasive Line Start (10/21/20 12:18) Clonidine Tablet (Catapres Tablet) (10/21/20 12:30) Prochlorperazine Injection (Compazine In (10/21/20 12:30) Diphenhydramine Injection (Benadryl Inje (10/21/20 12:30) Ketorolac Injection (Toradol Injection) (10/21/20 12:30) Ibuprofen Tablet (Motrin Tablet) (10/21/20 12:30) Hs C Reactive Protein (10/21/20 13:00) Cbc No Diff (10/21/20 13:06) Medications Given in ED Current Medications Medications Dose Ordered Sig/Ethan Route Start Time Stop Time Status Last Admin Dose Admin Clonidine HCl 0.1 mg ONCE ONCE PO 10/21/20 12:30 10/21/20 12:31 DC 10/21/20 12:41 0.1 MG Ibuprofen 800 mg ONCE ONCE PO 10/21/20 12:30 10/21/20 12:31 DC 10/21/20 12:40 800 MG Vital Signs/I&O 10/21/20 12:13 Temp 36.1 Pulse 71 Resp 18 B/P (MAP) 157/109 (125) Pulse Ox 97 Capillary Refill : Departure Communication (Admissions) NAME: [facility] REC#: [id number] PT STATUS: REG ER : 1975 PHYSICIAN: LEXX ENCISO APRN ADMIT DATE: 10/21/20/ER Draft Date of Exam:10/21/20 CT HEAD WO Clinical Indication: Patient with headache and hypertension. Patient had an episode of numbness and memory loss a week ago. Exam: Axial CT scan of the brain without IV contrast with coronal and sagittal reformatted images. Auto Exposure Controls were utilized during the CT exam to meet ALARA standards for radiation dose reduction. Comparison: None. Findings: There is skull streak artifact which obscures portions of the brainstem, posterior fossa, and portions of the brain near the skull. There is no evidence of acute cerebral infarct, intracranial hemorrhage, or gross mass effect. The brain parenchymal volume appears appropriate for patient's age. There is normal calzada-white matter distinction. There is no significant midline shift or herniation. There is no evidence of hydrocephalus. The basal cisterns are unremarkable. The skull, extracranial soft tissue, and orbits are unremarkable. There is minimal ethmoid sinus mucosal thickening. Temporal bones show no significant abnormality. Impression: 1: Unremarkable CT scan of the brain, as visualized. 2: There is minimal ethmoid sinus mucosal thickening. Dictated on workstation # [id number] Dict: 10/21/20 1303 Trans: 10/21/20 1309 [facility] [id number] Interpreted by: ERIN SOLITARIO MD Electronically signed by: 1230- RN was unable to get an IV. She does not want me to stick her left hand will usually get her because she just had blood drawn yesterday and her hand is now sore. I tried to 22-gauge in the left forearm, she was intolerant of this. I was able to get blood. We will not start an IV. I will order Motrin instead of injections 1313-discussed with patient the low platelets today. Yesterday on labs they were normal per [facility] with a platelet count of 179,000. Advised her that this needs to be rechecked either today or in the near future with primary care. She would prefer to have this done at primary care. At this time her headache is gone. Discussed with her the minimal ethmoid sinus thickening. She denies any nasal congestion, sneezing, rhinorrhea, fevers chills or persistent headaches other than today. Will defer antibiotic use at this time. Impression Primary Impression: Headache Additional Impression: Hypertension Disposition: 01 HOME, SELF-CARE Condition: Stable Departure-Patient Inst. Decision time for Depature: 13:12 Referrals: BELÉN URIBE (PCP/Family) Primary Care Physician Patient Instructions: Headache, Adult ED Add. Discharge Instructions: Follow up with Malena Uribe in the next 1 to 2 weeks for recheck of your platelet count which was measured at 87 today, a little low and likely rep resents a clump of platelets at the bottom of the test tube and is not likely an accurate test since your platelet count yesterday was normal. Return to ER for any concerns. Take your regular dose of metoprolol this evening. LEXX ENCISO APRN October 21, 2020 12:23
[2020-10-21] MEDS ORDERED: diphenhydrAMINE 50 MG/ML INJ (BENADRYL) IVP ONE (12:30)
[2020-10-21] MEDS ORDERED: KETOROLAC 30 MG/ML VIAL IVP ONE (12:30)
[2020-10-21] MEDS ORDERED: PROCHLORPERAZINE 10 MG/2ML INJ (COMPAZINE) IV ONE (12:30)
[2020-10-21 12:37] LABS: BASOPHILS % (AUTO) 0 % (0-10); EOSINOPHILS # (AUTO) 0.2 10^3/uL (0.0-0.3); EOSINOPHILS % (AUTO) 2 % (0-10); HEMATOCRIT 45 % (35-52); HEMOGLOBIN 14.6 g/dL (11.5-16.0); LYMPHOCYTES % (AUTO) 30 % (12-44); MEAN CORPUSCULAR HEMOGLOBIN 32 pg (25-34); MEAN CORPUSCULAR HGB CONC 33 g/dL (32-36); MEAN CORPUSCULAR VOLUME 97 fL (80-99); MEAN PLATELET VOLUME 12.4 fL (9.0-12.2); MONOCYTES # (AUTO) 0.4 10^3/uL (0.0-1.0); MONOCYTES % (AUTO) 6 % (0-12); NEUTROPHILS # (AUTO) 4.2 10^3/uL (1.8-7.8); NEUTROPHILS % (AUTO) 61 % (42-75); WHITE BLOOD COUNT 6.8 10^3/uL (4.3-11.0)
[2020-10-21 12:38] LABS: PLATELET COUNT 87 10^3/uL (130-400)
[2020-10-21] MEDS: IBUPROFEN 800 MG (MOTRIN) TAB PO ONE (12:40)
[2020-10-21] MEDS: cloNIDine 0.1 MG (CATAPRES) TAB PO ONE (12:41)
[2020-10-21 12:51] LABS: CHLORIDE 106 MMOL/L (98-107); POTASSIUM 4.5 MMOL/L (3.6-5.0); SODIUM 138 MMOL/L (135-145)
[2020-10-21 12:52] LABS: CALCIUM 9.3 MG/DL (8.5-10.1)
[2020-10-21 12:53] LABS: GLUCOSE 93 MG/DL (70-105); TOTAL PROTEIN 7.3 GM/DL (6.4-8.2)
[2020-10-21 12:54] LABS: CARBON DIOXIDE 22 MMOL/L (21-32)
[2020-10-21 12:55] LABS: BILIRUBIN,TOTAL 0.5 MG/DL (0.1-1.0)
[2020-10-21 12:56] LABS: ALKALINE PHOSPHATASE 69 U/L (40-136)
[2020-10-21 12:57] LABS: CREATININE SERUM 0.78 MG/DL (0.60-1.30); GFR ESTIMATED > 60
[2020-10-21 12:58] LABS: BUN/CREATININE RATIO 9
[2020-10-21 13:00] LABS: ALANINE AMINOTRANSFERASE 46 U/L (0-55)
--- NOTE | 2020-10-21 13:09 | Diagnostic Imaging Report ---
Clinical Indication: Patient with headache and hypertension. Patient had an episode of numbness and memory loss a week ago. Exam: Axial CT scan of the brain without IV contrast with coronal and sagittal reformatted images. Auto Exposure Controls were utilized during the CT exam to meet ALARA standards for radiation dose reduction. Comparison: None. Findings: There is skull streak artifact which obscures portions of the brainstem, posterior fossa, and portions of the brain near the skull. There is no evidence of acute cerebral infarct, intracranial hemorrhage, or gross mass effect. The brain parenchymal volume appears appropriate for patient's age. There is normal calzada-white matter distinction. There is no significant midline shift or herniation. There is no evidence of hydrocephalus. The basal cisterns are unremarkable. The skull, extracranial soft tissue, and orbits are unremarkable. There is minimal ethmoid sinus mucosal thickening. Temporal bones show no significant abnormality. Impression: 1: Unremarkable CT scan of the brain, as visualized. 2: There is minimal ethmoid sinus mucosal thickening. Dictated by: Dictated on workstation # [id number]
--- NOTE | 2020-10-21 13:09 | Diagnostic Imaging Report ---
INDICATION: Hypertension. Correlation is made with prior chest radiograph from 07/14/2012. The heart size is normal. The pulmonary vascularity is unremarkable. The lungs are clear. No infiltrate, effusion or pneumothorax is detected. Impression: No acute cardiopulmonary process is detected. Dictated by: Dictated on workstation # [id number]
[2020-10-21 13:32] VITALS: BP 142/93
== END 2020-10-21 13:29 | disposition home or self-care (01) ==
LOC: EDUNIT# 11:54 → ER 11:56
DX: I10 Essential (primary) hypertension (principal); J32.2 Chronic ethmoidal sinusitis; K21.9 Gastro-esophageal reflux disease without esophagitis; Z79.899 Other long term (current) drug therapy
CPT/HCPCS: 36415; 70450; 71045; 80053; 85025; 86141; 93005